=== PATIENT | female | born 1935 | race Caucasian/White ===

== ENCOUNTER 2016-11-15 14:11 | Inpatient (IN) | payer MEDICARE, OTHER ==
--- NOTE | 2016-11-15 14:41 | ER Document Report ---
ED Fall - General Stated Complaint: FALL/HIP PAIN Time Seen by Provider: 11/15/16 14:15 Mode of Arrival: Medic Information source: Patient, Emergency Med Personnel, [facility] Records Cannot obtain history due to: Dementia Notes: This 81-year-old female patient comes in complaining of left hip pain. She tripped over her dog on Wednesday 2 days ago, and injured her left hip. She has not been able to walk since then due to pain. There were no other injuries. TRAVEL OUTSIDE OF THE [place] IN LAST 30 DAYS: No - Related data Allergies/Adverse Reactions: erythromycin base [Erythromycin Base] Allergy (Severe, Verified 11/15/16 16:01) indomethacin [From Indocin] Allergy (Severe, Verified 11/15/16 16:01) indomethacin sodium [From Indocin] Allergy (Severe, Verified 11/15/16 16:01) Sulfa (Sulfonamide Antibiotics) Allergy (Verified 11/15/16 16:01) Hives Past Medical History - General Information source: Patient, Emergency Med Personnel, [facility] Records Cannot obtain history due to: Dementia - Social History Smoking Status: Unknown if Ever Smoked Cigarette use (# per day): No Chew tobacco use (# tins/day): No Smoking Education Provided: No Frequency of alcohol use: None Drug Abuse: None Occupation: retired Lives with: Spouse/Significant other Family History: None, Reviewed & Not Pertinent - Past Medical History Cardiac Medical History: Reports: Hx Hypercholesterolemia, Hx Hypertension Pulmonary Medical History: Reports: Hx Bronchitis EENT Medical History: Reports: None Neurological Medical History: Reports: None Endocrine Medical History: Reports: Hx Diabetes Mellitus Type 2, Hx Hypothyroidism Renal/ Medical History: Reports: None GI Medical History: Reports: None Musculoskeltal Medical History: Reports Hx Arthritis - spine and knees Psychiatric Medical History: Reports: Hx Dementia Traumatic Medical History: Reports: Hx Fractures - TAIL BONE Past Surgical History: Reports: Hx Appendectomy, Hx Orthopedic Surgery - R knee - Immunizations Hx Diphtheria, Pertussis, Tetanus Vaccination: Yes - 2006 Hx Pneumococcal Vaccination: 03/05/07 Review of Systems - Review of Systems -: Yes ROS unobtainable due to patient's medical condition - Dementia and hip pain Physical Exam - Vital signs Vitals: Temp Pulse BP Pulse Ox 98.7 F 97 130/66 H 95 11/15/16 14:20 11/15/16 14:20 11/15/16 14:20 11/15/16 14:20 Interpretation: Normal - General General appearance: Alert, Anxious In distress: Mild - HEENT Head: Normocephalic, Atraumatic Eyes: Normal Pupils: PERRL Neck: Normal - Respiratory Respiratory status: No respiratory distress Breath sounds: Normal - Cardiovascular Rhythm: Regular Heart sounds: Normal auscultation Murmur: No - Abdominal Inspection: Normal Bowel sounds: Normal Tenderness: Tender - Tenderness to palpate the left superior pubic region. - Back Back: Normal - Extremities General upper extremity: Normal inspection General lower extremity: Other - Left lateral hip is exquisitely tender to palpate. The leg does not appear externally rotated or shortened. - Neurological Neuro grossly intact: Yes - Psychological Associated symptoms: Anxious, Confused - Skin Skin Temperature: Warm Skin Moisture: Dry Skin Color: Normal Course - Vital Signs Vital signs: Temp Pulse Resp BP Pulse Ox 98.7 F 97 130/66 H 95 11/15/16 14:20 11/15/16 14:20 11/15/16 14:20 11/15/16 14:20 - Laboratory Result Diagrams: 11/15/16 15:32 11/15/16 15:32 Laboratory results interpreted by me: 11/15/16 11/15/16 15:32 15:32 WBC 17.6 H Hct 35.3 L Absolute Neutrophils 11.0 H Absolute Monocytes 1.8 H BUN 30 H Est GFR (Non-Af Amer) 53 L Glucose 212 H Direct Bilirubin 0.5 H Albumin 3.3 L - Diagnostic Test Radiology reviewed: Image reviewed, Reports reviewed - Displaced left superior and inferior pubic rami fractures - Consults Dr. Becker Time consulted: 17:00 Consulted provider: will come to ER Discharge - Discharge Clinical Impression: Systemic inflammatory response syndrome (SIRS) Fracture of pelvis Qualifiers: Encounter type: initial encounter Pelvic bone location: pubis Sublocation of pubis: superior rim Fracture type: closed Laterality: left Qualified Code(s): S32.512A - Fracture of superior rim of left pubis, initial encounter for closed fracture Leukocytosis Qualifiers: Leukocytosis type: unspecified Qualified Code(s): D72.829 - Elevated white blood cell count, unspecified Condition: Stable Disposition: ADMITTED INPATIENT Admitting Provider: Hospitalist Unit Admitted: Medical Floor
[2016-11-15 15:49] LABS: ABSOLUTE BASOPHILS # (AUTO) 0.1 10^3/uL (0.0-0.2); ABSOLUTE EOSINOPHILS # (AUTO) 0.2 10^3/uL (0.0-0.6); ABSOLUTE LYMPHOCYTES (AUTO) 4.6 10^3/uL (0.5-4.7); ABSOLUTE MONOCYTES (AUTO) 1.8 10^3/uL (0.1-1.4); BASOPHILS % (AUTO) 0.6 % (0-2); HEMATOCRIT 35.3 % (36.0-47.0); HEMOGLOBIN 12.4 g/dL (12.0-15.5); HGB HCT DIFFERENCE 1.9; LYMPHOCYTES % (AUTO) 25.9 % (13-45); MEAN CORPUSCULAR HEMOGLOBIN 31.9 pg (27.0-33.4); MEAN CORPUSCULAR HGB CONC 35.1 g/dL (32.0-36.0); MEAN CORPUSCULAR VOLUME 91 fl (80-97); MONOCYTES % (AUTO) 10.1 % (3-13); RED BLOOD COUNT 3.87 10^6/uL (3.72-5.28); RED CELL DISTRIBUTION WIDTH 13.3 % (11.5-14.0); SEGMENTED NEUTROPHILS % (AUTO) 62.4 % (42-78); WHITE BLOOD COUNT 17.6 10^3/uL (4.0-10.5)
[2016-11-15 16:02] LABS: ALANINE AMINOTRANSFERASE 25 U/L (9-52); ALBUMIN 3.3 g/dL (3.5-5.0); ALKALINE PHOSPHATASE 56 U/L (38-126); ANION GAP 11 (5-19); ASPARTATE AMINO TRANSFERASE 24 U/L (14-36); BILIRUBIN,DIRECT 0.5 mg/dL (0.0-0.4); BILIRUBIN,TOTAL 1.3 mg/dL (0.2-1.3); BLOOD UREA NITROGEN 30 mg/dL (7-20); CALCIUM 9.2 mg/dL (8.4-10.2); CARBON DIOXIDE 23 mmol/L (22-30); CHLORIDE 106 mmol/L (98-107); GLUCOSE 212 mg/dL (75-110); POTASSIUM 4.5 mmol/L (3.6-5.0); SODIUM 140.1 mmol/L (137-145); TOTAL PROTEIN 6.7 g/dL (6.3-8.2)
[2016-11-15] MEDS ORDERED: HYDROMORPHONE HCL INJ/PF 2 MG/ML AMPULE IV ONE (16:17)
[2016-11-15] MEDS ORDERED: DEXTROSE 50%-WATER 25 GM/50 ML DISP.SYRIN IV PRN ×2 (17:18)
[2016-11-15] MEDS ORDERED: GLUCAGON,HUMAN RECOMB 1 MG INJ IM PRN (17:18)
[2016-11-15] MEDS ORDERED: DEXTROSE 40% GEL 15 GM TUBE PO PRN ×2 (17:18)
[2016-11-15] MEDS ORDERED: HYDROMORPHONE HCL INJ/PF 2 MG/ML AMPULE IV PRN (17:22)
[2016-11-15] MEDS ORDERED: CEFTRIAXONE 1 GM/D5W RTU 1 GM/50 ML RTUPB IV ONE (18:00)
--- NOTE | 2016-11-15 18:10 | PDOC H&P ---
History of Present Illness Admission Date/PCP: 11/15/16 17:44 Dr. Tyler Patient complains of: Pelvic pain History of Present Illness: LIZ GONZALEZ is a 81 year old female several days status post with pelvic pain. Patient found to have pelvic fracture in emergency department. She normally resides with her elderly . He did not want to take patient to the hospital because he was hoping nothing was wrong with her. Eventually her daughters insisted that she be brought emergency department for evaluation. In the emergency department she was also noted to have elevated white blood count. She apparently has been having some urologic issues that have been followed by Dr. Alexis of urology. From family description it sounds like she had some type of ureteral mass and is scheduled to have cystoscopy on 2016. She is supposed to have preoperative evaluation this . Past Medical History Cardiac Medical History: Reports: Hyperlipidema, Hypertension Denies: Atrial Fibrillation, Congestive Heart Failure, Coronary Artery Disease, Myocardial Infarction, Peripheral Vascular Disease, Pulmonary Embolism , Heart Murmur Pulmonary Medical History: Reports: Bronchitis Denies: Asthma, Chronic Obstructive Pulmonary Disease (COPD), Pneumonia, Respiratory Failure, Sleep Apnea, Tuberculosis EENT Medical History: Reports: None Neurological Medical History: Reports: None Denies: Seizures Endocrine Medical History: Reports: Diabetes Mellitus Type 2, Hypothyroidism Denies: Hyperthyroidism Renal/ Medical History: Reports: Other - Ureteral mass, hematuria Denies: End Stage Renal Disease Malignancy Medical History: Denies: Breast Cancer, Cervical Cancer, Leukemia, Lung Cancer, Ovarian Cancer GI Medical History: Reports: None Denies: Crohn's Disease, Gastroesophageal Reflux Disease, Hiatal Hernia Musculoskeltal Medical History: Reports: Arthritis - spine and knees Denies: Fibromyalgia Psychiatric Medical History: Reports: Dementia Denies: Bipolar Disorder, Depression, Post Traumatic Stress Disorder Hematology: Denies: Anemia, Hemophilia, Sickle Cell Disease Infectious Medical History: Denies: HIV Past Surgical History Past Surgical History: Reports: Appendectomy, Orthopedic Surgery - R knee Denies: Amputation, Section, Cholecystectomy, Colostomy, Coronary Artery Bypass Graft, Gastric Bypass Surgery, Herniorrhaphy, Hysterectomy, Mastectomy, Pacemaker, Tonsillectomy, Tubal Ligation Social History Information Source: Patient, Relative Lives with: Spouse/Significant other Smoking Status: Unknown if Ever Smoked Frequency of Alcohol Use: None Hx Recreational Drug Use: No Hx Prescription Drug Abuse: No - Advance Directive Resuscitation Status: Full Code Family History Family History: Reviewed & Not Pertinent Parental Family History Reviewed: Yes Children Family History Reviewed: Yes Sibling(s) Family History Reviewed.: Yes Medication/Allergy Home Medications: Acetaminophen [Tylenol Extra Strength 500 mg Tablet] 1 - 2 tab PO Q4 11/29/12 Fexofenadine HCl [Rox Allergy] 180 mg PO QHS 11/29/12 Insulin Aspart [Novolog Flexpen] 6 unit SUBCUT 11/29/12 Insulin Glargine,Hum.rec.anlog [Lantus Insulin 100 Unit/mL] 50 unit SUBCUT QAM 11/29/12 Insulin Glargine,Hum.rec.anlog [Lantus Insulin 100 Unit/mL] 50 unit SUBCUT QHS 11/29/12 Latanoprost [Xalatan 0.005% Oph Soln 2.5 Ml Bottle] 1 drop QHS 11/29/12 Lorazepam 0.5 mg PO TID PRN 11/29/12 Zolpidem Tartrate 5 mg PO QHS 11/29/12 Atenolol [Tenormin 25 mg Tablet] 12.5 mg PO DAILY 01/26/14 Ergocalciferol (Vitamin D2) [Vitamin D] 400 unit PO DAILY 01/26/14 Folic Acid/Multivit-Min/Lutein [Centrum Silver Chewable Tablet] 1 each PO DAILY 01/26/14 Sertraline HCl [Zoloft] 25 mg PO DAILY 01/26/14 Simvastatin 20 mg PO DAILY 01/26/14 Hydrocodone Bit/Acetaminophen [Hydrocodon-Acetaminophen 5-325] 1 each PO Q6 #30 tablet 11/13/15 Ondansetron [Zofran Odt 4 mg Tablet] 4 mg PO Q4HP PRN #30 tab.rapdis 11/13/15 Tamsulosin HCl [Flomax 0.4 mg Cap.sr] 0.4 mg PO DAILY #7 cap.sr.24h 11/13/15 Lidocaine [Lidoderm 5% (700 mg) Transdermal Patch] 1 patch TP DAILY #30 adh..patch 12/04/15 Tramadol HCl [Ultram 50 mg Tablet] 50 mg PO ASDIR PRN #30 tablet 12/04/15 Allergies/Adverse Reactions: erythromycin base [Erythromycin Base] Allergy (Severe, Verified 11/15/16 16:01) indomethacin [From Indocin] Allergy (Severe, Verified 11/15/16 16:01) indomethacin sodium [From Indocin] Allergy (Severe, Verified 11/15/16 16:01) Sulfa (Sulfonamide Antibiotics) Allergy (Verified 11/15/16 16:01) Hives Review of Systems Constitutional: ABSENT: chills, fever(s), headache(s), weight gain, weight loss Eyes: ABSENT: visual disturbances Ears: PRESENT: hearing changes - Deafness Cardiovascular: ABSENT: chest pain, dyspnea on exertion, edema, orthropnea, palpitations Respiratory: ABSENT: cough, hemoptysis Gastrointestinal: ABSENT: abdominal pain, constipation, diarrhea, hematemesis, hematochezia, nausea, vomiting Genitourinary: ABSENT: dysuria, hematuria Musculoskeletal: PRESENT: other - Pelvic pain. ABSENT: joint swelling Integumentary: ABSENT: rash, wounds Neurological: ABSENT: abnormal gait, abnormal speech, confusion, dizziness, focal weakness, syncope Psychiatric: ABSENT: anxiety, depression, homidical ideation, suicidal ideation Endocrine: ABSENT: cold intolerance, heat intolerance, polydipsia, polyuria Hematologic/Lymphatic: ABSENT: easy bleeding, easy bruising Physical Exam Vital Signs: Temp Pulse Resp BP Pulse Ox 98.7 F 97 130/66 H 95 11/15/16 14:20 11/15/16 14:20 11/15/16 14:20 11/15/16 14:20 PHYSICAL EXAM: GENERAL: Appears well, no acute distress, extremely hard of hearing HEENT: Normocephalic, no scleral icterus, conjunctiva clear, EOEM intact, PERRLA , moist mucous membranes NECK: trachea midline, no thyromegally RESPIRATORY: Clear to auscultation, no wheezes/rhonchi CARDIAC: Regular rate and rhythm, no murmur/[place]/rub ABDOMEN: Soft, no distension, no tenderness, no guarding, normal bowel sounds, negative Corcoran sign RECTAL: deferred : deferred EXTREMITIES: No edema, cyanosis, clubbing MUSCULOSKELETAL: Pain with any range of motion of the lower extremities VASCULAR: normal peripheral pulses NEUROLOGIC: Alert, oriented to person/place/time, normal speech, cranial nerves grossly intact, 5/5 strength in all extremities, tactile sensation intact in all extremities SKIN: No rash, no wounds, no worrisome skin lesions PSYCHIATRIC: Normal mood, normal affect Results Laboratory Results: Labs- All tests 24 hr 11/15/16 11/15/16 15:32 15:32 WBC 17.6 H RBC 3.87 Hgb 12.4 Hct 35.3 L MCV 91 MCH 31.9 MCHC 35.1 RDW 13.3 Plt Count 251 Seg Neutrophils % 62.4 Lymphocytes % 25.9 Monocytes % 10.1 Eosinophils % 1.0 Basophils % 0.6 Absolute Neutrophils 11.0 H Absolute Lymphocytes 4.6 Absolute Monocytes 1.8 H Absolute Eosinophils 0.2 Absolute Basophils 0.1 Sodium 140.1 Potassium 4.5 Chloride 106 Carbon Dioxide 23 Anion Gap 11 BUN 30 H Creatinine 1.00 Est GFR ( Amer) > 60 Est GFR (Non-Af Amer) 53 L Glucose 212 H Calcium 9.2 Total Bilirubin 1.3 Direct Bilirubin 0.5 H Indirect Bilirubin Not Reportable Neonat Total Bilirubin Not Reportable AST 24 ALT 25 Alkaline Phosphatase 56 Total Protein 6.7 Albumin 3.3 L Impressions: Hip X-Ray 11/15/16 14:22 IMPRESSION: FRACTURES OF THE LEFT SUPERIOR AND INFERIOR PUBIC RAMI. NO DEFINITE ACUTE TRAUMATIC FINDINGS IN THE LEFT HIP ITSELF. Chest X-Ray 11/15/16 17:16 IMPRESSION: MILD CARDIOMEGALY. MILD CHRONIC INTERSTITIAL CHANGES. NO ACUTE RADIOGRAPHIC FINDING IN THE CHEST. Assessment & Plan - Diagnosis (1) Pelvic fracture Qualifiers: Encounter type: initial encounter Pelvic bone location: pubis Sublocation of pubis: superior rim Fracture type: closed Laterality: left Qualified Code(s): S32.512A - Fracture of superior rim of left pubis, initial encounter for closed fracture Is this a current diagnosis for this admission?: YesPlan: This is going to pose a significant mobility issue. Physical therapy to evaluate. water reuse program manager to evaluate. Family has not happy about the possibility of inpatient rehabilitation as they have had a bad experience with their father. Oxycodone for pain. (2) SIRS (systemic inflammatory response syndrome) Is this a current diagnosis for this admission?: YesPlan: Patient has significant leukocytosis. Chest x-ray is negative. Check urinalysis. Check blood culture. Start IV Rocephin for now. (3) Ureteral mass Is this a current diagnosis for this admission?: YesPlan: Obtain records from Dr. Alexis of urology. Patient was scheduled to have preoperative evaluation this and cystoscopy on 12/03/[address] Alexis. (4) Diabetes Is this a current diagnosis for this admission?: YesPlan: Sliding scale insulin for now. Verify home medications. (5) Deafness Is this a current diagnosis for this admission?: Yes - Time Time Spent: Greater than 70 Minutes - Inpatient Certification Based on my medical assessment, after consideration of the patient's comorbidities, presenting symptoms, or acuity I expect that the services needed warrant INPATIENT care.: Yes I certify that my determination is in accordance with my understanding of Medicare's requirements for reasonable and necessary INPATIENT services [42 CFR 412.3e].: Yes Medical Necessity: Need for Pain Control, Need for IV Antibiotics
[2016-11-15 19:51] LABS: ADD ON TESTING BLD IN LAB ACKNOWLEDGE
[2016-11-15 20:09] LABS: APPEARANCE,URINE SLIGHTLY-CLOUDY; BILIRUBIN,URINE NEGATIVE (NEGATIVE); GLUCOSE, URINE >=500 mg/dL (NEGATIVE); KETONES,URINE NEGATIVE (NEGATIVE); LEUKOCYTE ESTERASE,URINE NEGATIVE (NEGATIVE); NITRITE,URINE NEGATIVE (NEGATIVE); PROTEIN,URINE 30 mg/dL (NEGATIVE); URINE SPECIFIC GRAVITY 1.038; UROBILINOGEN,URINE NEGATIVE mg/dL (<2.0)
[2016-11-15 20:18] LABS: CREATINE KINASE 137 U/L (30-135)
[2016-11-15 20:31] LABS: CREATINE KINASE MB 0.49 ng/mL (<4.55)
[2016-11-15 20:32] LABS: TROPONIN I < 0.012 ng/mL
[2016-11-15] MEDS: ACETAMINOPHEN 325 MG TABLET PO PRN (22:22)
[2016-11-15] MEDS: INSULIN LISPRO 100 UNIT/ML 3 ML VIAL SUBCUT PRN (22:57)
[2016-11-16 05:17] LABS: ABSOLUTE BASOPHILS # (AUTO) 0.1 10^3/uL (0.0-0.2); ABSOLUTE EOSINOPHILS # (AUTO) 0.7 10^3/uL (0.0-0.6); ABSOLUTE LYMPHOCYTES (AUTO) 6.2 10^3/uL (0.5-4.7); ABSOLUTE MONOCYTES (AUTO) 1.7 10^3/uL (0.1-1.4); ABSOLUTE NEUT (AUTO) 7.6 10^3/uL (1.7-8.2); BASOPHILS % (AUTO) 0.9 % (0-2); EOSINOPHILS % (AUTO) 4.4 % (0-6); HEMOGLOBIN 12.1 g/dL (12.0-15.5); HGB HCT DIFFERENCE 2.3; LYMPHOCYTES % (AUTO) 38.1 % (13-45); MEAN CORPUSCULAR HEMOGLOBIN 32.6 pg (27.0-33.4); MEAN CORPUSCULAR HGB CONC 35.7 g/dL (32.0-36.0); MEAN CORPUSCULAR VOLUME 91 fl (80-97); MONOCYTES % (AUTO) 10.3 % (3-13); RED BLOOD COUNT 3.73 10^6/uL (3.72-5.28); RED CELL DISTRIBUTION WIDTH 13.5 % (11.5-14.0); SEGMENTED NEUTROPHILS % (AUTO) 46.3 % (42-78); WHITE BLOOD COUNT 16.3 10^3/uL (4.0-10.5)
[2016-11-16 05:45] LABS: ANION GAP 9 (5-19); BLOOD UREA NITROGEN 35 mg/dL (7-20); CALCIUM 9.3 mg/dL (8.4-10.2); CARBON DIOXIDE 22 mmol/L (22-30); CHLORIDE 109 mmol/L (98-107); CREATININE RESULT 1.05 mg/dL (0.52-1.25); GLUCOSE 178 mg/dL (75-110); POTASSIUM 4.2 mmol/L (3.6-5.0); SODIUM 140.1 mmol/L (137-145)
[2016-11-16] MEDS: ENOXAPARIN SODIUM INJ 40 MG/0.4 ML DISP.SYRIN SUBCUT SCH (09:59)
[2016-11-16] MEDS: CEFTRIAXONE 1 GM/D5W RTU 50 ML IV SCH (10:13)
[2016-11-16] MEDS: OXYCODONE HCL IR 5 MG TABLET PO PRN (10:24)
[2016-11-16] MEDS: HYDROMORPHONE HCL INJ/PF 2 MG/ML AMPULE IV PRN ×2 (11:29→18:51)
[2016-11-16] MEDS: INSULIN LISPRO 100 UNIT/ML 3 ML VIAL SUBCUT PRN ×2 (11:44→22:39)
--- NOTE | 2016-11-16 12:23 | Physician Advisory Note ---
Physician Advisor ProgressNote .: [place] [facility], I have reviewed the medical record for this patient. Physician Advisor Statement: Nice documentation of fx details. Possible documentation opportunities if attending agrees: 1. "SIRS, present on admission, due to " [?bacterial infxn of unclear etiology? acute fx? both?] 2. "suspected bacterial infection of unclear etiology" ['til have a definite dx, still need to give dx reason for the IV abx] 3. ? "fx is suspected pathologic due to underlying osteoporosis"? As always, if concerned about any unstable VS or abnormal labs, please comment on them - what bad things they might indicate, why they concern you - & note what doing about them. Please also document each day the potential clinical problems you are concerned could occur if pt not kept in hospital for tx at this time. (These points are hardy - if present in each note, attending's status decision should be sufficiently supported.) Discussion: 81yo female w/ chronic co-morbidities including HTN, HLD, DM-2, hypothyroidism, bronchitis, dementia, OA of spine & knees, fx tailbone, Rt knee surgery, urethral mass scheduled for outpt cystoscopy 12/03, deafness, ambulatory dysfunction, unsteady at baseline w/use of walker per PT report. - presented 5 PM to ED w/continued Lt hip pain since a trip & fall a couple days before. (+) HR 97, RR15, BP 130/66. WBC 17.6, Hgb 12.4, BUN 30, Cr 1.0, glc 212, U/A w/ 30 pro & 500+ glc, xray = displaced Lt sup & inf pubic rami fx.s. ED gave Dilaudid 0.5mg x 2, ashley catheter. Attending ordered U/A, BC, ur cx, f/u labs through 11/18, IV Rocephin, daily wts , PT eval, oxycodone for pain. TTP Lt sup pubic region, exquisitely TTP Lt lat hip. (+) "pain w/any ROM of LEs". As of 11/16, attending has ordered prn IV Dilaudid for pain, continued Rocephin. PT eval 11/16 notes mobility 80-99% impaired w/goal being 1-19% impaired. Further details of eval currently pending. Status: Pt w/pelvic fx, unable to be helped by surgery. Unable to ambulate or bear weight. High risk for further falls w/fx.s if not kept w/ongoing PT & close monitoring. Became tachycardic again to 94 at 21:10 last pm, still 87 @00:31, with BP ranging 109/72 - 150/66. Still w/significant leukocytosis this AM, expecting & tx'ing for underlying bacterial infxn of unknown etiology, w/u in progress. Still w/significant pain, unable to be managed adequately w/po meds at present. VS not stable. Attending clearly expecting pt to need ongoing hospital care & monitoring for at least 2 MNs. Tx & monitoring in inpatient hospital setting medically reasonable & necessary to protect pt's health, safety, & medical condition. Appropriate for Inpt status. Thanks for your help with documentation accuracy/specificity improvement! Nimisha Oates MD [facility] Physician Advisor, Fellow of Hospital Medicine
--- NOTE | 2016-11-16 14:17 | PDOC PROGRESS REPORT ---
Subjective Progress Note for:: 11/16/16 Subjective:: Patient continues to have pelvic pain. Patient denies fever, chills, headache, new focal weakness, chest pain, shortness of breath, abdominal pain, nausea, vomiting, diarrhea, constipation. Physical Exam Vital Signs: Temp Pulse Resp BP Pulse Ox 98.5 F 87 18 150/66 H 93 11/16/16 00:31 11/16/16 00:31 11/16/16 00:31 11/16/16 00:31 11/16/16 00:31 Intake & Output 11/15/16 11/16/16 11/17/16 06:59 06:59 06:59 Intake Total 0 Output Total 420 Balance -420 Weight 72.2 kg GENERAL: No acute distress, hard of hearing HEENT: Conjunctiva clear, nonicteric, moist mucous membranes, no JVD, midline trachea RESPIRATORY: Clear to auscultation bilaterally, no wheezes, no rhonchi CARDIAC: Regular rate and rhythm, no murmurs/gallops/rubs ABDOMEN: Soft, nondistended, nontender, positive bowel sounds, no rebound, no guarding EXTREMETIES: No edema, cyanosis, clubbing NEUROLOGIC: Alert, oriented to person/place/time, CN's grossly intact, no focal deficits SKIN: No rash, wounds PSYCH: Normal mood, normal affect Results Laboratory Results: 11/16/16 04:31 11/16/16 04:31 11/15/16 11/16/16 11/16/16 19:25 04:31 04:31 WBC 16.3 H RBC 3.73 Hgb 12.1 Hct 34.0 L MCV 91 MCH 32.6 MCHC 35.7 RDW 13.5 Plt Count 240 Seg Neutrophils % 46.3 Lymphocytes % 38.1 Monocytes % 10.3 Eosinophils % 4.4 Basophils % 0.9 Absolute Neutrophils 7.6 Absolute Lymphocytes 6.2 H Absolute Monocytes 1.7 H Absolute Eosinophils 0.7 H Absolute Basophils 0.1 Sodium 140.1 Potassium 4.2 Chloride 109 H Carbon Dioxide 22 Anion Gap 9 BUN 35 H Creatinine 1.05 Est GFR ( Amer) > 60 Est GFR (Non-Af Amer) 50 L Glucose 178 H Calcium 9.3 Magnesium 2.0 Urine Color YELLOW Urine Appearance SLIGHTLY-CLOUDY Urine pH 5.0 Ur Specific Branch 1.038 Urine Protein 30 H Urine Glucose (UA) >=500 H Urine Ketones NEGATIVE Urine Blood NEGATIVE Urine Nitrite NEGATIVE Ur Leukocyte Esterase NEGATIVE Urine WBC (Auto) 8 Urine RBC (Auto) 10 Impressions: Hip X-Ray 11/15/16 14:22 IMPRESSION: FRACTURES OF THE LEFT SUPERIOR AND INFERIOR PUBIC RAMI. NO DEFINITE ACUTE TRAUMATIC FINDINGS IN THE LEFT HIP ITSELF. Chest X-Ray 11/15/16 17:16 IMPRESSION: MILD CARDIOMEGALY. MILD CHRONIC INTERSTITIAL CHANGES. NO ACUTE RADIOGRAPHIC FINDING IN THE CHEST. Assessment & Plan - Diagnosis (1) Pelvic fracture Qualifiers: Encounter type: initial encounter Pelvic bone location: pubis Sublocation of pubis: superior rim Fracture type: closed Laterality: left Qualified Code(s): S32.512A - Fracture of superior rim of left pubis, initial encounter for closed fracture Is this a current diagnosis for this admission?: YesPlan: This is going to pose a significant mobility issue. Physical therapy as tolerated. assistant facility manager to evaluate. Family has not happy about the possibility of inpatient rehabilitation as they have had a bad experience with their father. Oxycodone for pain. (2) SIRS (systemic inflammatory response syndrome) Is this a current diagnosis for this admission?: YesPlan: Patient has significant leukocytosis. Chest x-ray is negative. Urinalysis unremarkable. Blood cultures pending. Continue IV Rocephin for now. (3) Ureteral mass Is this a current diagnosis for this admission?: YesPlan: Case discussed with Dr. Chi of urology who is web application tester for Dr. Alexis. He states the patient can be rescheduled for preoperative evaluation when she is discharged from the hospital. He states that she can still have cystoscopy on 12/03/2016 as plan if she can be transported to procedure. (4) Diabetes Is this a current diagnosis for this admission?: Yes (5) Deafness Is this a current diagnosis for this admission?: Yes - Time Time Spent with patient: 25-34 minutes
[2016-11-16] MEDS: ONDANSETRON HCL INJ/PF 4 MG/2 ML SDV IV PRN (16:46)
[2016-11-17] MEDS: OXYCODONE HCL IR 5 MG TABLET PO PRN ×3 (05:33→17:10)
[2016-11-17 05:40] LABS: ABSOLUTE BASOPHILS # (AUTO) 0.2 10^3/uL (0.0-0.2); ABSOLUTE EOSINOPHILS # (AUTO) 0.6 10^3/uL (0.0-0.6); ABSOLUTE LYMPHOCYTES (AUTO) 4.7 10^3/uL (0.5-4.7); ABSOLUTE MONOCYTES (AUTO) 1.7 10^3/uL (0.1-1.4); ABSOLUTE NEUT (AUTO) 7.6 10^3/uL (1.7-8.2); BASOPHILS % (AUTO) 1.2 % (0-2); EOSINOPHILS % (AUTO) 4.2 % (0-6); HEMATOCRIT 34.4 % (36.0-47.0); HEMOGLOBIN 12.3 g/dL (12.0-15.5); HGB HCT DIFFERENCE 2.5; LYMPHOCYTES % (AUTO) 31.6 % (13-45); MEAN CORPUSCULAR HEMOGLOBIN 32.3 pg (27.0-33.4); MEAN CORPUSCULAR HGB CONC 35.7 g/dL (32.0-36.0); MEAN CORPUSCULAR VOLUME 91 fl (80-97); MONOCYTES % (AUTO) 11.5 % (3-13); RED BLOOD COUNT 3.79 10^6/uL (3.72-5.28); RED CELL DISTRIBUTION WIDTH 13.4 % (11.5-14.0); SEGMENTED NEUTROPHILS % (AUTO) 51.5 % (42-78); WHITE BLOOD COUNT 14.7 10^3/uL (4.0-10.5)
[2016-11-17 05:59] LABS: ANION GAP 12 (5-19); BLOOD UREA NITROGEN 40 mg/dL (7-20); CARBON DIOXIDE 22 mmol/L (22-30); CHLORIDE 104 mmol/L (98-107); CREATININE RESULT 1.11 mg/dL (0.52-1.25); GLUCOSE 276 mg/dL (75-110); POTASSIUM 4.6 mmol/L (3.6-5.0); SODIUM 137.8 mmol/L (137-145)
[2016-11-17] MEDS: INSULIN LISPRO 100 UNIT/ML 3 ML VIAL SUBCUT PRN ×3 (08:39→17:12)
[2016-11-17] MEDS: CEFTRIAXONE 1 GM/D5W RTU 50 ML IV SCH (10:33)
[2016-11-17] MEDS: ACETAMINOPHEN 325 MG TABLET PO PRN (10:34)
[2016-11-17] MEDS ORDERED: (PENDING PHARMACY ID) (Atenolol [Tenormin] 12.5 MG) PO PRN (10:38)
[2016-11-17] MEDS ORDERED: INSULIN GLARGINE,HUM.REC.ANLOG 1,000 UNIT/10 ML UNIT SUBCUT SCH (10:45)
[2016-11-17] MEDS: LORATADINE 10 MG TABLET PO SCH (11:19)
[2016-11-17] MEDS: SERTRALINE HCL 50 MG TABLET PO SCH (11:20)
--- NOTE | 2016-11-17 13:24 | PDOC PROGRESS REPORT ---
Subjective Progress Note for:: 11/17/16 Subjective:: Patient states her pelvic pain is controlled. She was able to get up and do a couple sidesteps at the bedside with physical therapy today. Patient denies fever, chills, headache, new focal weakness, chest pain, shortness of breath, abdominal pain, nausea, vomiting, diarrhea, constipation. Physical Exam Vital Signs: Temp Pulse Resp BP Pulse Ox 97.7 F 93 17 123/63 91 L 11/17/16 11:00 11/17/16 11:00 11/17/16 11:00 11/17/16 11:00 11/17/16 11:00 Intake & Output 11/16/16 11/17/16 11/18/16 06:59 06:59 06:59 Intake Total 0 480 Output Total 420 350 Balance -420 130 Weight 72.2 kg 72 kg GENERAL: No acute distress, hard of hearing HEENT: Conjunctiva clear, nonicteric, moist mucous membranes, no JVD, midline trachea RESPIRATORY: Clear to auscultation bilaterally, no wheezes, no rhonchi CARDIAC: Regular rate and rhythm, no murmurs/gallops/rubs ABDOMEN: Soft, nondistended, nontender, positive bowel sounds, no rebound, no guarding EXTREMETIES: No edema, cyanosis, clubbing NEUROLOGIC: Alert, oriented to person/place/time, CN's grossly intact, no focal deficits SKIN: No rash, wounds PSYCH: Normal mood, normal affect Results Laboratory Results: 11/17/16 05:31 11/17/16 05:31 11/17/16 11/17/16 05:31 05:31 WBC 14.7 H RBC 3.79 Hgb 12.3 Hct 34.4 L MCV 91 MCH 32.3 MCHC 35.7 RDW 13.4 Plt Count 279 Seg Neutrophils % 51.5 Lymphocytes % 31.6 Monocytes % 11.5 Eosinophils % 4.2 Basophils % 1.2 Absolute Neutrophils 7.6 Absolute Lymphocytes 4.7 Absolute Monocytes 1.7 H Absolute Eosinophils 0.6 Absolute Basophils 0.2 Sodium 137.8 Potassium 4.6 Chloride 104 Carbon Dioxide 22 Anion Gap 12 BUN 40 H Creatinine 1.11 Est GFR ( Amer) 57 L Est GFR (Non-Af Amer) 47 L Glucose 276 H Calcium 9.0 11/15/16 19:25 Catheterized Urine Urine Culture - Final NO GROWTH 2 DAYS Impressions: Hip X-Ray 11/15/16 14:22 IMPRESSION: FRACTURES OF THE LEFT SUPERIOR AND INFERIOR PUBIC RAMI. NO DEFINITE ACUTE TRAUMATIC FINDINGS IN THE LEFT HIP ITSELF. Chest X-Ray 11/15/16 17:16 IMPRESSION: MILD CARDIOMEGALY. MILD CHRONIC INTERSTITIAL CHANGES. NO ACUTE RADIOGRAPHIC FINDING IN THE CHEST. Assessment & Plan - Diagnosis (1) Pelvic fracture Qualifiers: Encounter type: initial encounter Pelvic bone location: pubis Sublocation of pubis: superior rim Fracture type: closed Laterality: left Qualified Code(s): S32.512A - Fracture of superior rim of left pubis, initial encounter for closed fracture Is this a current diagnosis for this admission?: YesPlan: This is going to pose a significant mobility issue. Physical therapy as tolerated. manager council to evaluate. Family has not happy about the possibility of inpatient rehabilitation as they have had a bad experience with their father. Oxycodone for pain. (2) SIRS (systemic inflammatory response syndrome) Is this a current diagnosis for this admission?: YesPlan: Patient has significant leukocytosis. Chest x-ray is negative. Urinalysis unremarkable. Blood cultures no growth 24 hours. Continue IV Rocephin for now. (3) Ureteral mass Is this a current diagnosis for this admission?: YesPlan: Case discussed with Dr. Chi of urology who is ultrasonic solderer for Dr. Alexis. He states the patient can be rescheduled for preoperative evaluation when she is discharged from the hospital. He states that she can still have cystoscopy on 12/03/2016 as plan if she can be transported to procedure. (4) Diabetes Is this a current diagnosis for this admission?: YesPlan: Sliding scale insulin for now. Resume Lantus 15 units subcutaneous twice daily (patient normally takes 32 units twice daily). (5) Deafness Is this a current diagnosis for this admission?: Yes - Time Time Spent with patient: 25-34 minutes
[2016-11-17] MEDS ORDERED: MAGNESIUM HYDROXIDE SUSP 30 ML UDCUP PO ONE (14:45)
[2016-11-17] MEDS: DOCUSATE SODIUM 100 MG CAPSULE PO SCH (17:10)
[2016-11-17] MEDS: HYDROMORPHONE HCL INJ/PF 2 MG/ML AMPULE IV PRN (20:34)
[2016-11-17] MEDS: INSULIN GLARGINE,HUM.REC.ANLOG 300 UNIT/3 ML INSULN.PEN SUBCUT SCH (21:50)
[2016-11-17] MEDS: LATANOPROST 0.005% OPH SOLN 2.5 ML OU SCH (21:51)
[2016-11-17] MEDS: SIMVASTATIN 40 MG TABLET PO SCH (21:51)
[2016-11-18] MEDS: ENOXAPARIN SODIUM INJ 40 MG/0.4 ML DISP.SYRIN SUBCUT SCH (08:00)
[2016-11-18] MEDS: CEFTRIAXONE 1 GM/D5W RTU 50 ML IV SCH (10:00)
[2016-11-18] MEDS: MULTIVITAMIN TABLET PO SCH (10:00)
[2016-11-18] MEDS: INSULIN GLARGINE,HUM.REC.ANLOG 300 UNIT/3 ML INSULN.PEN SUBCUT SCH (10:00)
[2016-11-18] MEDS ORDERED: [UNRECOGNIZED DRUG - REMARK] PO SCH (10:00)
[2016-11-18] MEDS: DOCUSATE SODIUM 100 MG CAPSULE PO SCH ×2 (10:00→18:00)
[2016-11-18] MEDS: LORATADINE 10 MG TABLET PO SCH (12:00)
[2016-11-18] MEDS: SERTRALINE HCL 50 MG TABLET PO SCH (12:00)
--- NOTE | 2016-11-18 16:42 | PROGRESS NOTE E ---
Progress Note NAME: LIZ GONZALEZ : 1935 AGE: 81Y DATE: 11/18/2016 ROOM: 431 TIME SPENT MANAGING PATIENT: Twenty-five minutes. SUBJECTIVE: Patient continues to have pain and this was to the point that she is not participating with physical therapy. I have learned today that her was also in the emergency department overnight secondary to multiple acute and chronic vertebral compression fractures. He also apparently has respiratory distress and has been admitted to the hospital and placed on noninvasive ventilation for now. Patient normally resides with her and daughter. OBJECTIVE: VITAL SIGNS: Temperature 98.1, blood pressure 133/52, pulse 88, respirations 18. O2 saturation is 95% on 1 L nasal cannula. GENERAL: Somewhat depressed appearing in no acute distress. HEENT: Sclerae nonicteric. Oropharynx shows moist mucous membranes. NECK: Has no JVD. RESPIRATORY: Clear to auscultation. CARDIAC: Regular rate and rhythm. ABDOMEN: Soft, nontender, nondistended. Positive bowel sounds. EXTREMITIES: Have no edema, cyanosis, clubbing. LABORATORIES: White blood count 16.1. Hemoglobin 12.1. Hematocrit 281. Chemistry panel is reviewed. Aside from a glucose at 258, it is otherwise stable. ASSESSMENT AND PLAN: 1. SYSTEMIC INFLAMMATORY RESPONSE SYNDROME. Discontinue IV Rocephin, as culture workup has been negative. Start doxycycline to complete another 7 days of empiric therapy. 2. PELVIC FRACTURE. Continue physical therapy as tolerated. Increase oxycodone to 10 mg as needed for better pain control. If patient is not able to return home in the next couple of days, we may have to consider referral to rehab facility. Although the family has been very opposed to this, her social situation is worsening given the fact that her has now been hospitalized for respiratory failure and vertebral compression fractures. 3. DIABETES. THE PATIENT IS HYPERGLYCEMIC, so we will increase her Lantus to 20 units twice daily. Continue sliding scale insulin. 4. DEAFNESS. DICTATING PHYSICIAN: MELONIE LIAO M.D. [id number] PHY#: [id number] ID: [id number] JOB#: [id number] ACCT: [id number] cc: >
[2016-11-18] MEDS ORDERED: INSULIN GLARGINE,HUM.REC.ANLOG 300 UNIT/3 ML INSULN.PEN SUBCUT SCH (22:00)
[2016-11-18] MEDS: SIMVASTATIN 40 MG TABLET PO SCH (22:57)
[2016-11-18] MEDS: LATANOPROST 0.005% OPH SOLN 2.5 ML OU SCH (22:58)
[2016-11-19] MEDS: ONDANSETRON HCL INJ/PF 4 MG/2 ML SDV IV PRN (01:40)
[2016-11-19] MEDS: OXYCODONE HCL IR 5 MG TABLET PO PRN ×2 (05:54→11:34)
[2016-11-19 07:59] LABS: ABSOLUTE BASOPHILS # (AUTO) 0.1 10^3/uL (0.0-0.2); ABSOLUTE EOSINOPHILS # (AUTO) 0.9 10^3/uL (0.0-0.6); ABSOLUTE LYMPHOCYTES (AUTO) 5.3 10^3/uL (0.5-4.7); ABSOLUTE MONOCYTES (AUTO) 2.2 10^3/uL (0.1-1.4); ABSOLUTE NEUT (AUTO) 7.7 10^3/uL (1.7-8.2); BASOPHILS % (AUTO) 0.8 % (0-2); EOSINOPHILS % (AUTO) 5.4 % (0-6); HEMATOCRIT 34.3 % (36.0-47.0); HEMOGLOBIN 12.1 g/dL (12.0-15.5); LYMPHOCYTES % (AUTO) 32.6 % (13-45); MEAN CORPUSCULAR HEMOGLOBIN 32.2 pg (27.0-33.4); MEAN CORPUSCULAR HGB CONC 35.3 g/dL (32.0-36.0); MEAN CORPUSCULAR VOLUME 91 fl (80-97); MONOCYTES % (AUTO) 13.4 % (3-13); RED BLOOD COUNT 3.76 10^6/uL (3.72-5.28); RED CELL DISTRIBUTION WIDTH 13.2 % (11.5-14.0); SEGMENTED NEUTROPHILS % (AUTO) 47.8 % (42-78); WHITE BLOOD COUNT 16.1 10^3/uL (4.0-10.5)
[2016-11-19] MEDS: ENOXAPARIN SODIUM INJ 40 MG/0.4 ML DISP.SYRIN SUBCUT SCH (08:36)
[2016-11-19] MEDS: DOCUSATE SODIUM 100 MG CAPSULE PO SCH ×2 (09:44→17:11)
[2016-11-19] MEDS: MULTIVITAMIN TABLET PO SCH (09:44)
[2016-11-19] MEDS: ASCORBIC ACID 500 MG TABLET PO SCH (09:44)
[2016-11-19] MEDS: DOXYCYCLINE HYCLATE 100 MG TABLET PO SCH ×2 (09:44→22:29)
[2016-11-19] MEDS: INSULIN GLARGINE,HUM.REC.ANLOG 300 UNIT/3 ML INSULN.PEN SUBCUT SCH ×2 (09:45→21:53)
[2016-11-19] MEDS: SERTRALINE HCL 50 MG TABLET PO SCH (11:35)
[2016-11-19] MEDS: LORATADINE 10 MG TABLET PO SCH (11:35)
[2016-11-19] MEDS: INSULIN LISPRO 100 UNIT/ML 3 ML VIAL SUBCUT PRN ×3 (11:37→21:53)
[2016-11-19 13:51] LABS: BLOOD UREA NITROGEN 37 mg/dL (7-20); CALCIUM 9.3 mg/dL (8.4-10.2); CREATININE RESULT 1.11 mg/dL (0.52-1.25); GLUCOSE 259 mg/dL (75-110)
[2016-11-19 13:52] LABS: ANION GAP 9 (5-19); CARBON DIOXIDE 27 mmol/L (22-30); CHLORIDE 104 mmol/L (98-107); SODIUM 140.1 mmol/L (137-145)
[2016-11-19 19:03] LABS: FREE T3 4.3 pg/mL (2.77-5.27)
[2016-11-19 19:17] LABS: THYROID STIMULATING HORMONE 0.66 uIU/mL (0.47-4.68)
--- NOTE | 2016-11-19 20:35 | PROGRESS NOTE E ---
Progress Note NAME: LIZ GONZALEZ : 1935 AGE: 81Y DATE: 11/19/2016 ROOM: 431 TIME SPENT MANAGING PATIENT: Twenty-five minutes. SUBJECTIVE: Patient's pain is generally well controlled except for when she moves with physical therapy. This is preventing her from wanting to participate in physical therapy much. On today's physical therapy activity, it is noted that she is max assist of 2 for bed mobility and that she was only able to take a couple of side steps again. This is not much progression from the last session if any. The patient has no fever, chills, headache, focal weakness, numbness, chest pain. OBJECTIVE: VITAL SIGNS: Temperature 98.0, blood pressure 120/56, pulse 80, respirations 18. GENERAL: She is alert, in no acute distress. Answers questions appropriately. HEENT: Sclerae are nonicteric. Conjunctivae are clear. Oropharynx has moist mucous membranes. NECK: No JVD. Midline trachea. RESPIRATORY: Clear to auscultation bilaterally with no wheezes or rhonchi. CARDIAC: Regular rate and rhythm. No murmurs, gallops, or rubs. ABDOMEN: Soft, nontender, nondistended. Positive bowel sounds. No rebound. No guarding. EXTREMITIES: No edema, cyanosis, or clubbing. NEUROLOGIC: She is alert. She is oriented to person only. Cranial nerves intact. No focal deficits. SKIN: No rashes or wounds. PSYCHIATRIC: Depressed mood somewhat. LABORATORY: White blood count 16.1, hemoglobin 12.1. Glucose 254. Blood and urine culture is negative. ASSESSMENT AND PLAN: 1. PELVIC FRACTURE. Patient is making very slow progress in physical therapy and I have discussed with her daughter today that she will likely need to go to a rehab facility. Wily of case management was present at time of this discussion and will work in this direction. 2. LEUKOCYTOSIS. Patient is afebrile. Blood cultures and urine culture were negative. Chest x-ray is negative. Discontinue Rocephin. Complete empiric course of doxycycline until 11/26/2016. 3. URETERAL MASS. Patient has cystoscopy scheduled in [place] on 12/03/[address] Alexis. She was supposed to have a preoperative evaluation on 11/19/[address] Alexis in the [place] office. This will have to be rescheduled once she is discharged from the hospital. 4. DIABETES MELLITUS. Increase Lantus to 25 units subcutaneous twice daily. Patient normally take 32 units twice daily at home. Continue sliding scale coverage. 5. DEAFNESS. 6. DEMENTIA. Check TSH. DICTATING PHYSICIAN: MELONIE LIAO M.D. [id number] PHY#: [id number] ID: [id number] JOB#: [id number] ACCT: [id number] cc: >
[2016-11-19] MEDS: SIMVASTATIN 40 MG TABLET PO SCH (21:55)
[2016-11-19] MEDS: LATANOPROST 0.005% OPH SOLN 2.5 ML OU SCH (21:56)
[2016-11-19] MEDS ORDERED: DOXYCYCLINE HYCLATE 100 MG TABLET PO ONE (22:14)
[2016-11-20] MEDS: ONDANSETRON HCL INJ/PF 4 MG/2 ML SDV IV PRN (02:00)
[2016-11-20 05:56] LABS: ABSOLUTE BASOPHILS # (AUTO) 0.2 10^3/uL (0.0-0.2); ABSOLUTE EOSINOPHILS # (AUTO) 0.6 10^3/uL (0.0-0.6); ABSOLUTE LYMPHOCYTES (AUTO) 4.9 10^3/uL (0.5-4.7); ABSOLUTE MONOCYTES (AUTO) 1.7 10^3/uL (0.1-1.4); ABSOLUTE NEUT (AUTO) 10.6 10^3/uL (1.7-8.2); EOSINOPHILS % (AUTO) 3.3 % (0-6); HEMATOCRIT 34.5 % (36.0-47.0); HEMOGLOBIN 12.2 g/dL (12.0-15.5); HGB HCT DIFFERENCE 2.1; LYMPHOCYTES % (AUTO) 27.2 % (13-45); MEAN CORPUSCULAR HEMOGLOBIN 32.2 pg (27.0-33.4); MEAN CORPUSCULAR HGB CONC 35.4 g/dL (32.0-36.0); MEAN CORPUSCULAR VOLUME 91 fl (80-97); MONOCYTES % (AUTO) 9.6 % (3-13); RED BLOOD COUNT 3.79 10^6/uL (3.72-5.28); SEGMENTED NEUTROPHILS % (AUTO) 58.9 % (42-78); WHITE BLOOD COUNT 17.9 10^3/uL (4.0-10.5)
[2016-11-20 06:15] LABS: ANION GAP 10 (5-19); BLOOD UREA NITROGEN 36 mg/dL (7-20); CALCIUM 9.4 mg/dL (8.4-10.2); CARBON DIOXIDE 26 mmol/L (22-30); CHLORIDE 103 mmol/L (98-107); CREATININE RESULT 0.93 mg/dL (0.52-1.25); GLUCOSE 202 mg/dL (75-110); POTASSIUM 5.1 mmol/L (3.6-5.0); SODIUM 138.8 mmol/L (137-145)
--- NOTE | 2016-11-20 08:32 | PDOC CONSULTATION ---
Consultation Consult Date: 11/20/16 Attending physician:: MELONIE LIAO Consult reason:: Leukocytosis History of Present Illness Admission Date/PCP: 11/15/16 17:18 Patient complains of: Leukocytosis History of Present Illness: 81-year-old female with recent history of pelvic fracture, she is also had a persistent leukocytosis. Infective workup has been recently negative. I reviewed labs going back to 2010, she has had a white count anywhere from 11-17 during this time, primarily neutrophilia, hemoglobin is been in the 11-12 range , platelets of been normal. Past Medical History Cardiac Medical History: Reports: Hyperlipidema, Hypertension Denies: Atrial Fibrillation, Congestive Heart Failure, Coronary Artery Disease, Myocardial Infarction, Peripheral Vascular Disease, Pulmonary Embolism , Heart Murmur Pulmonary Medical History: Reports: Bronchitis Denies: Asthma, Chronic Obstructive Pulmonary Disease (COPD), Pneumonia, Respiratory Failure, Sleep Apnea, Tuberculosis EENT Medical History: Reports: None Neurological Medical History: Reports: None Denies: Seizures Endocrine Medical History: Reports: Diabetes Mellitus Type 2, Hypothyroidism Denies: Hyperthyroidism Renal/ Medical History: Reports: None, Other - Ureteral mass, hematuria Denies: End Stage Renal Disease Malignancy Medical History: Denies: Breast Cancer, Cervical Cancer, Leukemia, Lung Cancer, Ovarian Cancer GI Medical History: Reports: None Denies: Crohn's Disease, Gastroesophageal Reflux Disease, Hiatal Hernia Musculoskeltal Medical History: Reports: Arthritis - spine and knees Denies: Fibromyalgia Psychiatric Medical History: Reports: Dementia Denies: Bipolar Disorder, Depression, Post Traumatic Stress Disorder Hematology: Denies: Anemia, Hemophilia, Sickle Cell Disease Infectious Medical History: Denies: HIV Past Surgical History Past Surgical History: Reports: Appendectomy, Orthopedic Surgery - R knee Denies: Amputation, Section, Cholecystectomy, Colostomy, Coronary Artery Bypass Graft, Gastric Bypass Surgery, Herniorrhaphy, Hysterectomy, Mastectomy, Pacemaker, Tonsillectomy, Tubal Ligation Social History Lives with: Spouse/Significant other Smoking Status: Unknown if Ever Smoked Frequency of Alcohol Use: None Hx Recreational Drug Use: No Hx Prescription Drug Abuse: No - Advance Directive Resuscitation Status: Full Code Family History Family History: Reviewed & Not Pertinent Parental Family History Reviewed: Yes Children Family History Reviewed: Yes Sibling(s) Family History Reviewed.: Yes Medication/Allergy Home Medications: Ascorbic Acid [Vitamin C] 1,000 mg PO Q2D 11/16/16 Atenolol [Tenormin] 12.5 mg PO ASDIR PRN 11/16/16 Fexofenadine HCl [Allergy Relief] 180 mg PO DAILY 11/16/16 Hydrocodone/Acetaminophen [[place] 5-325 mg Tablet] 1 tab PO Q6HP PRN 11/16/16 Insulin Glargine,Hum.rec.anlog [Lantus] 32 unit SQ Q12 11/16/16 Latanoprost 2.5 ml OU QHS 11/16/16 Multivitamin [Daily Multiple Vitamin] 2 each PO DAILY 11/16/16 Sertraline HCl [Zoloft] 100 mg PO DAILY 11/16/16 Simvastatin 40 mg PO QHS 11/16/16 Tamsulosin HCl [Flomax] 0.4 mg PO DAILY 11/16/16 Zolpidem Tartrate [Ambien 5 mg Tablet] 5 mg PO HSP PRN 11/16/16 Allergies/Adverse Reactions: erythromycin base [Erythromycin Base] Allergy (Severe, Verified 11/15/16 16:01) indomethacin [From Indocin] Allergy (Severe, Verified 11/15/16 16:01) Sulfa (Sulfonamide Antibiotics) Allergy (Verified 11/15/16 16:01) Hives Review of Systems ROS unobtainable: Other - Hard to obtain given hearing status Physical Exam Vital Signs: Temp Pulse Resp BP Pulse Ox 98.7 F 75 19 134/62 H 96 11/19/16 23:55 11/19/16 23:55 11/19/16 23:55 11/19/16 23:55 11/19/16 23:55 Intake & Output 11/19/16 11/20/16 11/21/16 06:59 06:59 06:59 Intake Total 450 840 Output Total 400 1040 Balance 50 -200 Weight 72.4 kg 72.8 kg General appearance: PRESENT: no acute distress, well-developed, well-nourished Head exam: PRESENT: atraumatic, normocephalic Eye exam: PRESENT: conjunctiva pink, EOMI, PERRLA. ABSENT: scleral icterus Ear exam: PRESENT: normal external ear exam Mouth exam: PRESENT: moist, tongue midline Neck exam: ABSENT: carotid bruit, JVD, lymphadenopathy, thyromegaly Respiratory exam: PRESENT: clear to auscultation moose. ABSENT: rales, rhonchi, wheezes Cardiovascular exam: PRESENT: RRR. ABSENT: diastolic murmur, rubs, systolic murmur Pulses: PRESENT: normal dorsalis pedis pul Vascular exam: PRESENT: normal capillary refill GI/Abdominal exam: PRESENT: normal bowel sounds, soft. ABSENT: distended, guarding, mass, organolmegaly, rebound, tenderness Rectal exam: PRESENT: deferred Extremities exam: PRESENT: full ROM. ABSENT: calf tenderness, clubbing, pedal edema Neurological exam: PRESENT: alert, awake, oriented to person, oriented to place , oriented to time, oriented to situation, CN II-XII grossly intact. ABSENT: motor sensory deficit Psychiatric exam: PRESENT: appropriate affect, normal mood. ABSENT: homicidal ideation, suicidal ideation Skin exam: PRESENT: dry, intact, warm. ABSENT: cyanosis, rash Results Laboratory Results: 11/20/16 05:29 11/20/16 05:29 11/18/16 11/18/16 11/19/16 08:55 08:55 18:00 WBC 16.1 H RBC 3.76 Hgb 12.1 Hct 34.3 L MCV 91 MCH 32.2 MCHC 35.3 RDW 13.2 Plt Count 281 Seg Neutrophils % 47.8 Lymphocytes % 32.6 Monocytes % 13.4 H Eosinophils % 5.4 Basophils % 0.8 Absolute Neutrophils 7.7 Absolute Lymphocytes 5.3 H Absolute Monocytes 2.2 H Absolute Eosinophils 0.9 H Absolute Basophils 0.1 Sodium 140.1 Potassium 5.0 Chloride 104 Carbon Dioxide 27 Anion Gap 9 BUN 37 H Creatinine 1.11 Est GFR ( Amer) 57 L Est GFR (Non-Af Amer) 47 L Glucose 259 H Calcium 9.3 TSH 0.66 Free T4 1.06 Free T3 pg/mL 4.30 11/20/16 11/20/16 05:29 05:29 WBC 17.9 H RBC 3.79 Hgb 12.2 Hct 34.5 L MCV 91 MCH 32.2 MCHC 35.4 RDW 13.0 Plt Count 342 Seg Neutrophils % 58.9 Lymphocytes % 27.2 Monocytes % 9.6 Eosinophils % 3.3 Basophils % 1.0 Absolute Neutrophils 10.6 H Absolute Lymphocytes 4.9 H Absolute Monocytes 1.7 H Absolute Eosinophils 0.6 Absolute Basophils 0.2 Sodium 138.8 Potassium 5.1 H Chloride 103 Carbon Dioxide 26 Anion Gap 10 BUN 36 H Creatinine 0.93 Est GFR ( Amer) > 60 Est GFR (Non-Af Amer) 58 L Glucose 202 H Calcium 9.4 TSH Free T4 Free T3 pg/mL Impressions: Hip X-Ray 11/15/16 14:22 IMPRESSION: FRACTURES OF THE LEFT SUPERIOR AND INFERIOR PUBIC RAMI. NO DEFINITE ACUTE TRAUMATIC FINDINGS IN THE LEFT HIP ITSELF. Chest X-Ray 11/15/16 17:16 IMPRESSION: MILD CARDIOMEGALY. MILD CHRONIC INTERSTITIAL CHANGES. NO ACUTE RADIOGRAPHIC FINDING IN THE CHEST. Assessment & Plan - Diagnosis (1) Leukocytosis Qualifiers: Leukocytosis type: unspecified Qualified Code(s): D72.829 - Elevated white blood cell count, unspecified Plan: Unknown cause, today sent workup including flow cytometry and FISH for BCR ABL. - Time Time Spent: 50 to 70 Minutes Critical Time spent with patient: 25-34 minutes
[2016-11-20] MEDS: OXYCODONE HCL IR 5 MG TABLET PO PRN ×2 (08:50→21:37)
[2016-11-20] MEDS: DOXYCYCLINE HYCLATE 100 MG TABLET PO SCH ×2 (10:16→21:37)
[2016-11-20] MEDS: DOCUSATE SODIUM 100 MG CAPSULE PO SCH ×2 (10:16→19:00)
[2016-11-20] MEDS: MULTIVITAMIN TABLET PO SCH (10:17)
[2016-11-20] MEDS: INSULIN GLARGINE,HUM.REC.ANLOG 300 UNIT/3 ML INSULN.PEN SUBCUT SCH ×2 (10:19→21:36)
[2016-11-20] MEDS: ENOXAPARIN SODIUM INJ 40 MG/0.4 ML DISP.SYRIN SUBCUT SCH (10:21)
[2016-11-20] MEDS: LORATADINE 10 MG TABLET PO SCH (13:03)
[2016-11-20] MEDS: SERTRALINE HCL 50 MG TABLET PO SCH (13:03)
[2016-11-20] MEDS: INSULIN LISPRO 100 UNIT/ML 3 ML VIAL SUBCUT PRN ×2 (13:09→21:35)
[2016-11-20] MEDS: HYDROMORPHONE HCL INJ/PF 2 MG/ML AMPULE IV PRN (16:13)
--- NOTE | 2016-11-20 19:35 | PROGRESS NOTE E ---
Progress Note NAME: LIZ GONZALEZ : 1935 AGE: 81Y DATE: 11/20/2016 ROOM: 431 Time spent managing the patient was 25 minutes. SUBJECTIVE: The patient is still having a significant amount of pain with physical therapy and has extremely limited mobility. She denies fever, chills, headache, chest pain, shortness of breath. OBJECTIVE: VITAL SIGNS: Temperature 99.7, blood pressure 128/65, pulse 90, respirations 20. GENERAL: She is alert, hard of hearing, in no acute distress. HEENT: Sclera is nonicteric. Conjunctivae clear. Oropharynx has moist mucous membranes. NECK: No JVD. Midline trachea. RESPIRATORY: Clear to auscultation. No wheezes or rhonchi. CARDIAC: Regular rate and rhythm. No murmurs, gallops or rubs. ABDOMEN: Soft, nontender, and nondistended. Positive bowel sounds. No rebound or guarding. EXTREMITIES: Have no edema, cyanosis or clubbing. NEUROLOGIC: She is alert. She is oriented to person only. PSYCHIATRIC: Depressed mood. LABORATORY STUDIES: White blood cell count 17.9, hemoglobin 12.2. Sodium 138, potassium 5.1, chloride 103, bicarb 26, BUN 36, creatinine 0.9, glucose 202. TSH 0.66. ASSESSMENT AND PLAN: 1. PELVIC FRACTURE. The patient is progressing very slowly and we have had discussion with family again today. They are now willing to go to [facility] for rehab prior to returning home. Case Management states that the patient has been made a bed offer this afternoon and she can go on Wednesday. 2. LEUKOCYTOSIS. The patient is afebrile. Blood culture and urine culture are negative. Chest x-ray negative. She is completing empiric course of doxycycline until 11/26/2016. She has been seen by Dr. Garrett of hematology today and leukemia panel has been sent. She can follow up with Hematology as an outpatient for this. 3. URETERAL MASS. The patient was in the process of being evaluated by cystoscopy on 12/03/[address] Alexis of urology. She was supposed to have preoperative evaluation on 11/19/2016 but missed this appointment. This will have to be rescheduled upon discharge from the hospital. Transportation will need to be arranged by the rehab facility for the patient to go to preop evaluation as soon as possible and then to cystoscopy in [place] on 12/03/[address] Alexis of urology. 4. DIABETES MELLITUS. Increase Lantus to 30 units subcutaneously twice daily. Continue sliding-scale insulin coverage. 5. DEAFNESS. 6. DEMENTIA. DICTATING PHYSICIAN: MELONIE LIAO M.D. [id number] PHY#: [id number] ID: [id number] JOB#: [id number] ACCT: [id number] cc: >
[2016-11-20] MEDS: SIMVASTATIN 40 MG TABLET PO SCH (21:37)
[2016-11-20] MEDS: LATANOPROST 0.005% OPH SOLN 2.5 ML OU SCH (21:38)
[2016-11-21] MEDS: HYDROMORPHONE HCL INJ/PF 2 MG/ML AMPULE IV PRN (02:16)
[2016-11-21] MEDS: INSULIN LISPRO 100 UNIT/ML 3 ML VIAL SUBCUT PRN ×3 (08:34→22:41)
[2016-11-21] MEDS: ENOXAPARIN SODIUM INJ 40 MG/0.4 ML DISP.SYRIN SUBCUT SCH (08:34)
[2016-11-21] MEDS: DOXYCYCLINE HYCLATE 100 MG TABLET PO SCH ×2 (09:43→22:42)
[2016-11-21] MEDS: MULTIVITAMIN TABLET PO SCH (09:44)
[2016-11-21] MEDS: ASCORBIC ACID 500 MG TABLET PO SCH (09:44)
[2016-11-21] MEDS: DOCUSATE SODIUM 100 MG CAPSULE PO SCH ×2 (09:45→17:30)
[2016-11-21] MEDS: INSULIN GLARGINE,HUM.REC.ANLOG 300 UNIT/3 ML INSULN.PEN SUBCUT SCH ×2 (09:45→22:42)
[2016-11-21] MEDS: SERTRALINE HCL 50 MG TABLET PO SCH (11:36)
[2016-11-21] MEDS: LORATADINE 10 MG TABLET PO SCH (11:36)
--- NOTE | 2016-11-21 11:44 | PDOC PROGRESS REPORT ---
Subjective Progress Note for:: 11/21/16 Subjective:: No acute events Physical Exam Vital Signs: Temp Pulse Resp BP Pulse Ox 98.2 F 86 16 127/63 H 91 L 11/21/16 08:00 11/21/16 08:00 11/21/16 08:00 11/21/16 08:00 11/21/16 08:00 Intake & Output 11/20/16 11/21/16 11/22/16 06:59 06:59 06:59 Intake Total 840 120 Output Total 1040 150 Balance -200 -30 Weight 72.8 kg 71.9 kg General appearance: PRESENT: no acute distress, well-developed, well-nourished Head exam: PRESENT: atraumatic, normocephalic Eye exam: PRESENT: conjunctiva pink, EOMI, PERRLA. ABSENT: scleral icterus Ear exam: PRESENT: normal external ear exam Mouth exam: PRESENT: moist, tongue midline Neck exam: ABSENT: carotid bruit, JVD, lymphadenopathy, thyromegaly Respiratory exam: PRESENT: clear to auscultation moose. ABSENT: rales, rhonchi, wheezes Cardiovascular exam: PRESENT: RRR. ABSENT: diastolic murmur, rubs, systolic murmur Pulses: PRESENT: normal dorsalis pedis pul Vascular exam: PRESENT: normal capillary refill GI/Abdominal exam: PRESENT: normal bowel sounds, soft. ABSENT: distended, guarding, mass, organolmegaly, rebound, tenderness Rectal exam: PRESENT: deferred Extremities exam: PRESENT: full ROM. ABSENT: calf tenderness, clubbing, pedal edema Neurological exam: PRESENT: alert, awake, oriented to person, oriented to place , oriented to time, oriented to situation, CN II-XII grossly intact. ABSENT: motor sensory deficit Psychiatric exam: PRESENT: appropriate affect, normal mood. ABSENT: homicidal ideation, suicidal ideation Skin exam: PRESENT: dry, intact, warm. ABSENT: cyanosis, rash Results Laboratory Results: 11/20/16 05:29 11/20/16 05:29 11/15/16 22:47 Blood Blood Culture - Final NO GROWTH IN 5 DAYS 11/15/16 22:02 Blood Blood Culture - Final NO GROWTH IN 5 DAYS Impressions: Hip X-Ray 11/15/16 14:22 IMPRESSION: FRACTURES OF THE LEFT SUPERIOR AND INFERIOR PUBIC RAMI. NO DEFINITE ACUTE TRAUMATIC FINDINGS IN THE LEFT HIP ITSELF. Chest X-Ray 11/15/16 17:16 IMPRESSION: MILD CARDIOMEGALY. MILD CHRONIC INTERSTITIAL CHANGES. NO ACUTE RADIOGRAPHIC FINDING IN THE CHEST. Assessment & Plan - Diagnosis (1) Leukocytosis Qualifiers: Qualified Code(s): D72.829 - Elevated white blood cell count, unspecified Plan: As noted previously most likely reactive in nature but workup is pending, she needs to have follow-up in our office for evaluation of his labs, it would take probably 2-3 weeks for those labs to come back as they are both send out labs. - Time Time Spent with patient: 15-24 minutes Critical Time spent with patient: 15-24 minutes
--- NOTE | 2016-11-21 11:53 | PDOC PROGRESS REPORT ---
Subjective Progress Note for:: 11/21/16 Subjective:: Patient seen on morning rounds. She is resting comfortably in bed. She denies any shortness of breath, cough or dyspnea. She denies any nausea, vomiting or abdominal pain. She does admit to pain in her lower back. She states she has a poor appetite because she just does not feel well. Rest of review of systems is negative. Physical Exam Vital Signs: Temp Pulse Resp BP Pulse Ox 98.2 F 86 16 127/63 H 91 L 11/21/16 08:00 11/21/16 08:00 11/21/16 08:00 11/21/16 08:00 11/21/16 08:00 Intake & Output 11/20/16 11/21/16 11/22/16 06:59 06:59 06:59 Intake Total 840 120 Output Total 1040 150 Balance -200 -30 Weight 72.8 kg 71.9 kg General appearance: PRESENT: no acute distress, well-developed, well-nourished Head exam: PRESENT: atraumatic, normocephalic Eye exam: PRESENT: conjunctiva pink, EOMI, PERRLA. ABSENT: scleral icterus Ear exam: PRESENT: normal external ear exam Mouth exam: PRESENT: moist, tongue midline Neck exam: ABSENT: carotid bruit, JVD, lymphadenopathy, thyromegaly Respiratory exam: PRESENT: clear to auscultation moose. ABSENT: rales, rhonchi, wheezes Cardiovascular exam: PRESENT: RRR. ABSENT: diastolic murmur, rubs, systolic murmur Pulses: PRESENT: normal dorsalis pedis pul Vascular exam: PRESENT: normal capillary refill GI/Abdominal exam: PRESENT: normal bowel sounds, soft. ABSENT: distended, guarding, mass, organolmegaly, rebound, tenderness Rectal exam: PRESENT: deferred Extremities exam: PRESENT: full ROM. ABSENT: calf tenderness, clubbing, pedal edema Musculoskeletal exam: PRESENT: full ROM - Lumbar spine, tenderness Neurological exam: PRESENT: alert, awake, oriented to person, oriented to place , oriented to time, oriented to situation, CN II-XII grossly intact. ABSENT: motor sensory deficit Psychiatric exam: PRESENT: flat affect Skin exam: PRESENT: dry, intact, warm. ABSENT: cyanosis, rash Results Laboratory Results: 11/20/16 05:29 11/20/16 05:29 11/15/16 22:47 Blood Blood Culture - Final NO GROWTH IN 5 DAYS 11/15/16 22:02 Blood Blood Culture - Final NO GROWTH IN 5 DAYS Impressions: Hip X-Ray 11/15/16 14:22 IMPRESSION: FRACTURES OF THE LEFT SUPERIOR AND INFERIOR PUBIC RAMI. NO DEFINITE ACUTE TRAUMATIC FINDINGS IN THE LEFT HIP ITSELF. Chest X-Ray 11/15/16 17:16 IMPRESSION: MILD CARDIOMEGALY. MILD CHRONIC INTERSTITIAL CHANGES. NO ACUTE RADIOGRAPHIC FINDING IN THE CHEST. Assessment & Plan - Diagnosis (1) Pelvic fracture Qualifiers: Encounter type: initial encounter Pelvic bone location: pubis Sublocation of pubis: superior rim Fracture type: closed Laterality: left Qualified Code(s): S32.512A - Fracture of superior rim of left pubis, initial encounter for closed fracture Is this a current diagnosis for this admission?: YesPlan: Oral analgesics. Physical therapy, she will need rehab placement postdischarge. (2) SIRS (systemic inflammatory response syndrome) Is this a current diagnosis for this admission?: YesPlan: Tachycardia and hypotension have resolved fluid volume. It does not appear to be an infectious source. (3) Diabetes Qualifiers: Diabetes mellitus type: type 2 Diabetes mellitus complication status: without complication Is this a current diagnosis for this admission?: YesPlan: Continue current medications and sliding scale coverage (4) Deafness Is this a current diagnosis for this admission?: Yes (5) Leukocytosis Qualifiers: Leukocytosis type: unspecified Qualified Code(s): D72.829 - Elevated white blood cell count, unspecified Is this a current diagnosis for this admission?: YesPlan: Appears chronic. No infectious origin found. Dr Garrett consulted studies pending (6) Ureteral mass Is this a current diagnosis for this admission?: Yes - Time Time Spent with patient: 25-34 minutes Critical Time spent with patient: 15-24 minutes Medications reviewed and adjusted accordingly: Yes Anticipated discharge: Acute Rehab Within: when bed available
[2016-11-21] MEDS: LATANOPROST 0.005% OPH SOLN 2.5 ML OU SCH (22:42)
[2016-11-21] MEDS: SIMVASTATIN 40 MG TABLET PO SCH (22:42)
[2016-11-21] MEDS: OXYCODONE HCL IR 5 MG TABLET PO PRN (22:50)
[2016-11-22] MEDS: ENOXAPARIN SODIUM INJ 40 MG/0.4 ML DISP.SYRIN SUBCUT SCH (09:23)
[2016-11-22] MEDS: INSULIN GLARGINE,HUM.REC.ANLOG 300 UNIT/3 ML INSULN.PEN SUBCUT SCH ×2 (09:24→22:25)
[2016-11-22] MEDS: DOXYCYCLINE HYCLATE 100 MG TABLET PO SCH ×2 (09:25→22:25)
[2016-11-22] MEDS: MULTIVITAMIN TABLET PO SCH (09:25)
[2016-11-22] MEDS: DOCUSATE SODIUM 100 MG CAPSULE PO SCH ×2 (09:26→17:32)
--- NOTE | 2016-11-22 11:01 | PDOC PROGRESS REPORT ---
Subjective Progress Note for:: 11/22/16 Subjective:: Patient seen on morning rounds. She is resting comfortably in bed. She is confused this morning. She sees her dog in the room. She knows she is in the hospital. She has recently been medicated for back pain. She denies any shortness of breath, cough or dyspnea. She denies any nausea, vomiting or abdominal pain. She states she has a poor appetite because she just does not feel well. Rest of review of systems is negative. Physical Exam Vital Signs: Temp Pulse Resp BP Pulse Ox 98.1 F 103 H 18 126/69 H 92 11/21/16 23:53 11/21/16 23:53 11/21/16 23:53 11/21/16 23:53 11/21/16 23:53 Intake & Output 11/21/16 11/22/16 11/23/16 06:59 06:59 06:59 Intake Total 120 430 Output Total 150 425 Balance -30 5 Weight 71.9 kg 70.8 kg General appearance: PRESENT: no acute distress, obese, well-developed, well- nourished Head exam: PRESENT: atraumatic, normocephalic Eye exam: PRESENT: conjunctiva pink, EOMI, PERRLA. ABSENT: scleral icterus Ear exam: PRESENT: normal external ear exam Mouth exam: PRESENT: moist, tongue midline Neck exam: ABSENT: carotid bruit, JVD, lymphadenopathy, thyromegaly Respiratory exam: PRESENT: clear to auscultation moose. ABSENT: rales, rhonchi, wheezes Cardiovascular exam: PRESENT: RRR. ABSENT: diastolic murmur, rubs, systolic murmur Pulses: PRESENT: normal dorsalis pedis pul GI/Abdominal exam: PRESENT: normal bowel sounds, soft. ABSENT: distended, guarding, mass, organolmegaly, rebound, tenderness Rectal exam: PRESENT: deferred Extremities exam: PRESENT: full ROM. ABSENT: calf tenderness, clubbing, pedal edema Neurological exam: PRESENT: alert, awake, oriented to person, CN II-XII grossly intact. ABSENT: motor sensory deficit Psychiatric exam: PRESENT: appropriate affect, normal mood. ABSENT: homicidal ideation, suicidal ideation Skin exam: PRESENT: dry, intact, warm. ABSENT: cyanosis, rash Results Laboratory Results: 11/20/16 05:29 11/20/16 05:29 Impressions: Hip X-Ray 11/15/16 14:22 IMPRESSION: FRACTURES OF THE LEFT SUPERIOR AND INFERIOR PUBIC RAMI. NO DEFINITE ACUTE TRAUMATIC FINDINGS IN THE LEFT HIP ITSELF. Chest X-Ray 11/15/16 17:16 IMPRESSION: MILD CARDIOMEGALY. MILD CHRONIC INTERSTITIAL CHANGES. NO ACUTE RADIOGRAPHIC FINDING IN THE CHEST. Assessment & Plan - Diagnosis (1) Pelvic fracture Qualifiers: Encounter type: initial encounter Pelvic bone location: pubis Sublocation of pubis: superior rim Fracture type: closed Laterality: left Qualified Code(s): S32.512A - Fracture of superior rim of left pubis, initial encounter for closed fracture Is this a current diagnosis for this admission?: YesPlan: Oral analgesics. Physical therapy, she will need rehab placement postdischarge. (2) SIRS (systemic inflammatory response syndrome) Is this a current diagnosis for this admission?: YesPlan: Tachycardia and hypotension have resolved fluid volume. It does not appear to be an infectious source. (3) Diabetes Qualifiers: Diabetes mellitus type: type 2 Diabetes mellitus complication status: without complication Is this a current diagnosis for this admission?: YesPlan: Continue current medications and sliding scale coverage (4) Deafness Is this a current diagnosis for this admission?: Yes (5) Leukocytosis Qualifiers: Leukocytosis type: unspecified Qualified Code(s): D72.829 - Elevated white blood cell count, unspecified Is this a current diagnosis for this admission?: YesPlan: Appears chronic. No infectious origin found. Dr Garrett consulted studies pending (6) Ureteral mass Is this a current diagnosis for this admission?: YesPlan: She will be followed up as an outpatient - Time Time Spent with patient: 25-34 minutes Critical Time spent with patient: 15-24 minutes Medications reviewed and adjusted accordingly: Yes Anticipated discharge: Acute Rehab
[2016-11-22] MEDS: SERTRALINE HCL 50 MG TABLET PO SCH (11:37)
[2016-11-22] MEDS: LORATADINE 10 MG TABLET PO SCH (11:38)
[2016-11-22] MEDS: OXYCODONE HCL IR 5 MG TABLET PO PRN ×2 (11:38→22:35)
[2016-11-22] MEDS: INSULIN LISPRO 100 UNIT/ML 3 ML VIAL SUBCUT PRN ×2 (11:38→17:32)
[2016-11-22] MEDS: SIMVASTATIN 40 MG TABLET PO SCH (22:25)
[2016-11-22] MEDS: LATANOPROST 0.005% OPH SOLN 2.5 ML OU SCH (22:25)
[2016-11-23 05:56] LABS: ABSOLUTE BASOPHILS # (AUTO) 0.1 10^3/uL (0.0-0.2); ABSOLUTE EOSINOPHILS # (AUTO) 0.2 10^3/uL (0.0-0.6); ABSOLUTE LYMPHOCYTES (AUTO) 2.8 10^3/uL (0.5-4.7); ABSOLUTE MONOCYTES (AUTO) 2.1 10^3/uL (0.1-1.4); ABSOLUTE NEUT (AUTO) 11.6 10^3/uL (1.7-8.2); BASOPHILS % (AUTO) 0.8 % (0-2); EOSINOPHILS % (AUTO) 1.3 % (0-6); HEMATOCRIT 32.9 % (36.0-47.0); HEMOGLOBIN 12.1 g/dL (12.0-15.5); HGB HCT DIFFERENCE 3.4; LYMPHOCYTES % (AUTO) 16.7 % (13-45); MEAN CORPUSCULAR HEMOGLOBIN 32.7 pg (27.0-33.4); MEAN CORPUSCULAR HGB CONC 36.6 g/dL (32.0-36.0); MEAN CORPUSCULAR VOLUME 89 fl (80-97); MONOCYTES % (AUTO) 12.2 % (3-13); RED BLOOD COUNT 3.68 10^6/uL (3.72-5.28); RED CELL DISTRIBUTION WIDTH 13.3 % (11.5-14.0); WHITE BLOOD COUNT 16.9 10^3/uL (4.0-10.5)
[2016-11-23 06:09] LABS: BLOOD UREA NITROGEN 28 mg/dL (7-20); CALCIUM 9.6 mg/dL (8.4-10.2); CHLORIDE 105 mmol/L (98-107); CREATININE RESULT 0.85 mg/dL (0.52-1.25); GLUCOSE 69 mg/dL (75-110); POTASSIUM 4.2 mmol/L (3.6-5.0)
[2016-11-23 06:10] LABS: ANION GAP 9 (5-19); CARBON DIOXIDE 26 mmol/L (22-30); SODIUM 140.4 mmol/L (137-145)
[2016-11-23] MEDS: ENOXAPARIN SODIUM INJ 40 MG/0.4 ML DISP.SYRIN SUBCUT SCH (07:39)
[2016-11-23 08:31] VITALS: BP 112/68
[2016-11-23] MEDS: ASCORBIC ACID 500 MG TABLET PO SCH (09:15)
[2016-11-23] MEDS: DOXYCYCLINE HYCLATE 100 MG TABLET PO SCH (09:15)
[2016-11-23] MEDS: INSULIN GLARGINE,HUM.REC.ANLOG 300 UNIT/3 ML INSULN.PEN SUBCUT SCH (09:15)
[2016-11-23] MEDS: DOCUSATE SODIUM 100 MG CAPSULE PO SCH (09:15)
[2016-11-23] MEDS: MULTIVITAMIN TABLET PO SCH (09:15)
[2016-11-23] MEDS: SERTRALINE HCL 50 MG TABLET PO SCH (11:07)
[2016-11-23] MEDS: ONDANSETRON HCL INJ/PF 4 MG/2 ML SDV IV PRN (11:07)
[2016-11-23] MEDS: LORATADINE 10 MG TABLET PO SCH (11:07)
--- NOTE | 2016-11-23 11:43 | PDOC TRANSFER SUMMARY ---
General - Admit/Disc Date/PCP Admission Date/Primary Care Provider: 11/15/16 17:18 Discharge Date: 11/23/16 - Discharge Diagnosis (1) Pelvic fracture Is this a current diagnosis for this admission?: YesSummary: Continue with PT (2) SIRS (systemic inflammatory response syndrome) Is this a current diagnosis for this admission?: YesSummary: Resolved (3) Diabetes Is this a current diagnosis for this admission?: YesSummary: Continue with current insulin dose (4) Deafness Is this a current diagnosis for this admission?: YesSummary: Speak slowly and clearly to patient (5) Leukocytosis Is this a current diagnosis for this admission?: YesSummary: Appears chronic , being evalutated by hematology (6) Ureteral mass Is this a current diagnosis for this admission?: YesSummary: Was being worked up at [place]. Scheduled for cystoscopy on December 03 - Additional Information Resuscitation Status: Full Code Discharge Diet: Diabetic Discharge Activity: Activity As Tolerated, Balance Activity w/Rest Home Medications: Ascorbic Acid [Vitamin C] 1,000 mg PO Q2D 11/16/16 Atenolol [Tenormin] 12.5 mg PO ASDIR PRN 11/16/16 Fexofenadine HCl [Allergy Relief] 180 mg PO DAILY 11/16/16 Insulin Glargine,Hum.rec.anlog [Lantus] 32 unit SQ Q12 11/16/16 Latanoprost 2.5 ml OU QHS 11/16/16 Multivitamin [Daily Multiple Vitamin] 2 each PO DAILY 11/16/16 Sertraline HCl [Zoloft] 100 mg PO DAILY 11/16/16 Simvastatin 40 mg PO QHS 11/16/16 Tamsulosin HCl [Flomax] 0.4 mg PO DAILY 11/16/16 Acetaminophen [Tylenol 325 mg Tablet] 650 mg PO Q4HP PRN tablet 11/23/16 Doxycycline Hyclate [Vibramycin 100 mg Tablet] 100 mg PO Q12 #6 tablet 11/23/16 Oxycodone HCl [Oxy-Ir 5 mg Tablet] 10 mg PO Q4HP PRN #40 tablet 11/23/16 Zolpidem Tartrate [Ambien 5 mg Tablet] 5 mg PO HSP PRN #5 tablet 11/23/16 History of Present Illness Admission Date/PCP: 11/15/16 17:18 Patient complains of: Pelvic pain after fall 3 days prior History of Present Illness: LIZ GONZALEZ is a 81 year old female several days status post with pelvic pain. Patient found to have pelvic fracture in emergency department. She normally resides with her elderly . He did not want to take patient to the hospital because he was hoping nothing was wrong with her. Eventually her daughters insisted that she be brought emergency department for evaluation. In the emergency department she was also noted to have elevated white blood count. She apparently has been having some urologic issues that have been followed by Dr. Alexis of urology. From family description it sounds like she had some type of ureteral mass and is scheduled to have cystoscopy on 2016. She is supposed to have preoperative evaluation this . Hospital Course Hospital Course: Patient was admitted to the hospitalist service on telemetry. She had physical therapy consulted for mobilization assistance. She was started on oral analgesics for pain control. She had been taking [place] 5/325 mg tablets at home with no improvement in her pain. Pain was able to be controlled with current dose of oxycodone. Dr. Garrett, import coordinator, saw the patient in consult for persistent leukocytosis with no source of infection. She has been noted to have high white count on previous admissions with no infectious source as well. He obtained various lab studies which were mostly send out with results are not back yet. She is known to have a uterine mass is being worked up at the present time. She has a cystoscopy scheduled on December 03. She can follow-up with Dr. Edita Bansal as an outpatient when her cystoscopy has been completed. Patient has intermittent periods of confusion mostly at nighttime. She is able to reorient easily. She is extremely hard of hearing. Physical Exam Vital Signs: Temp Pulse Resp BP Pulse Ox 98.6 F 87 20 112/68 92 11/23/16 00:00 11/23/16 08:03 11/23/16 08:03 11/23/16 08:03 11/23/16 08:03 Intake & Output 11/22/16 11/23/16 11/24/16 06:59 06:59 06:59 Intake Total 430 650 Output Total 425 675 Balance 5 -25 Weight 70.8 kg 72.7 kg General appearance: PRESENT: no acute distress, obese, well-developed, well- nourished Head exam: PRESENT: atraumatic, normocephalic Eye exam: PRESENT: conjunctiva pink, EOMI, PERRLA. ABSENT: scleral icterus Ear exam: PRESENT: normal external ear exam Mouth exam: PRESENT: moist, tongue midline Neck exam: ABSENT: carotid bruit, JVD, lymphadenopathy, thyromegaly Respiratory exam: PRESENT: clear to auscultation moose. ABSENT: rales, rhonchi, wheezes Cardiovascular exam: PRESENT: RRR. ABSENT: diastolic murmur, rubs, systolic murmur Pulses: PRESENT: normal dorsalis pedis pul GI/Abdominal exam: PRESENT: normal bowel sounds, soft. ABSENT: distended, guarding, mass, organolmegaly, rebound, tenderness Rectal exam: PRESENT: deferred Extremities exam: PRESENT: full ROM. ABSENT: calf tenderness, clubbing, pedal edema Musculoskeletal exam: PRESENT: tenderness - lower back Neurological exam: PRESENT: alert, awake, oriented to person, oriented to place , CN II-XII grossly intact Psychiatric exam: PRESENT: appropriate affect, normal mood. ABSENT: homicidal ideation, suicidal ideation Skin exam: PRESENT: dry, intact, warm. ABSENT: cyanosis, rash Results Laboratory Results: 11/23/16 05:36 11/23/16 05:36 11/23/16 11/23/16 05:36 05:36 WBC 16.9 H RBC 3.68 L Hgb 12.1 Hct 32.9 L MCV 89 MCH 32.7 MCHC 36.6 H RDW 13.3 Plt Count 436 Seg Neutrophils % 69.0 Lymphocytes % 16.7 Monocytes % 12.2 Eosinophils % 1.3 Basophils % 0.8 Absolute Neutrophils 11.6 H Absolute Lymphocytes 2.8 Absolute Monocytes 2.1 H Absolute Eosinophils 0.2 Absolute Basophils 0.1 Sodium 140.4 Potassium 4.2 Chloride 105 Carbon Dioxide 26 Anion Gap 9 BUN 28 H Creatinine 0.85 Est GFR ( Amer) > 60 Est GFR (Non-Af Amer) > 60 Glucose 69 L Calcium 9.6 Magnesium 2.0 Impressions: Hip X-Ray 11/15/16 14:22 IMPRESSION: FRACTURES OF THE LEFT SUPERIOR AND INFERIOR PUBIC RAMI. NO DEFINITE ACUTE TRAUMATIC FINDINGS IN THE LEFT HIP ITSELF. Chest X-Ray 05/14/17 17:16 IMPRESSION: MILD CARDIOMEGALY. MILD CHRONIC INTERSTITIAL CHANGES. NO ACUTE RADIOGRAPHIC FINDING IN THE CHEST. Transfer Plan - Disposition Transfer Plan: [facility] - Time Spent with Patient Time spent with patient: Less than 30 Minutes Qualifiers PATEINT BEING DISCHARGED WITH ANY OF THE FOLLOWING DIAGNOSIS?: No Plan Time Spent: Less than 30 Minutes
== END 2016-11-23 14:59 | DRG 536 ==
LOC: ER 14:11 → EH 17:18 → UNDOADMIN 17:44 → 4S 19:52
PROVIDERS: ADMIT Family Medicine; ATTEND Family Medicine
DX: S32.512A Fracture of superior rim of left pubis, initial encounter for closed fracture (principal); R65.10 Systemic inflammatory response syndrome (SIRS) of non-infectious origin without acute organ dysfunction; W01.0XXA Fall on same level from slipping, tripping and stumbling without subsequent striking against object, initial encounter; Y93.9 Activity, unspecified; Y99.9 Unspecified external cause status; Y92.9 Unspecified place or not applicable; N28.9 Disorder of kidney and ureter, unspecified; I10 Essential (primary) hypertension; E78.5 Hyperlipidemia, unspecified; E11.65 Type 2 diabetes mellitus with hyperglycemia; E03.9 Hypothyroidism, unspecified; M47.9 Spondylosis, unspecified; M17.0 Bilateral primary osteoarthritis of knee; F03.90 Unspecified dementia, unspecified severity, without behavioral disturbance, psychotic disturbance, mood disturbance, and anxiety; H91.90 Unspecified hearing loss, unspecified ear; Z79.4 Long term (current) use of insulin; Z79.899 Other long term (current) drug therapy; Z88.1 Allergy status to other antibiotic agents; Z88.8 Allergy status to other drugs, medicaments and biological substances
CPT/HCPCS: 36415; 71010; 80048; 80053; 81001; 81206; 81207; 82550; 82553; 82962; 83735; 84439; 84443; 84481; 84484; 85025; 87040; 87086; 88184; 88185; 96374; 99285; G8978-GP; G8979-GP; J0696; J1170; J1650; J1815; J2405; J3490

== ENCOUNTER → 2017-03-23 | Outpatient (CLI) | payer MEDICARE, OTHER ==
--- NOTE | 2017-03-23 12:55 | RADIOLOGY REPORT (SQ) ---
EXAM DESCRIPTION: CT ABD/PELVIS NO ORAL OR IV COMPLETED DATE/TIME: 03/23/2017 11:40 am REASON FOR STUDY: RIGHT HYDRONEPHROSIS (N13.30) R10.9 UNSPECIFIED ABDOMINAL PAIN N13.30 UNSPECIFIE D HYDRONEPHROSIS COMPARISON: 11/13/2015. TECHNIQUE: CT scan of the abdomen and pelvis performed without intravenous or oral contrast. Images reviewed with lung, soft tissue, and bone windows. Reconstructed coronal and sagittal MPR images revi ewed. All images stored on PACS. All CT scanners at this facility use dose modulation, iterative reconstruction, and/or weight based d osing when appropriate to reduce radiation dose to as low as reasonably achievable (ALARA). [facility]: Dose Right [facility]: CareDose [facility]: Dose Right [facility]: Teradose 4D [facility]: [employer] RADIATION DOSE: Up-to-date CT equipment and radiation dose reduction techniques were employed. CTDIv ol: 9.7 mGy. DLP: 504 mGy-cm.mGy. LIMITATIONS: None. FINDINGS: LOWER CHEST: No significant findings. No nodules or infiltrates. NON-CONTRASTED LIVER, SPLEEN, ADRENALS: Evaluation limited by lack of IV contrast. Spleen surgically absent. No identified significant masses. PANCREAS: No masses. No peripancreatic inflammatory changes. GALLBLADDER: Surgically absent. RIGHT KIDNEY AND URETER: No suspicious masses. Assessment limited by lack of IV contrast. No signif icant calcifications. Moderate hydronephrosis and hydroureter. The ureter is dilated to the pelvis to the level of the uterus. LEFT KIDNEY AND URETER: No suspicious masses. Assessment limited by lack of IV contrast. No signifi cant calcifications. No hydronephrosis or hydroureter. AORTA AND RETROPERITONEUM: No aneurysm. No retroperitoneal masses or adenopathy. BOWEL AND PERITONEAL CAVITY: No obvious masses or inflammatory changes. No free fluid. APPENDIX: Not visualized. PELVIS, BLADDER, AND ABDOMINAL WALL:No abnormal masses. No free fluid. Bladder normal. BONES: Old pelvic fractures. Degenerative changes in the spine with prior kyphoplasty. OTHER: No other significant finding. IMPRESSION: 1. MODERATE HYDRONEPHROSIS AND HYDROURETER ON THE RIGHT SIDE TO THE LEVEL OF THE UTERUS. NO CALCULI VISUALIZED. NO OBVIOUS ETIOLOGY ALTHOUGH POSSIBLY EXTRINSIC COMPRESSION FROM THE UTERUS. 2. OTHER CHRONIC FINDINGS ABOVE. OTHERWISE NO SIGNIFICANT OR ACUTE PROCESS IN THE ABDOMEN OR PELV IS. COMMENT: Quality ID # [id number]: Final reports with documentation of one or more dose reduction techniques (e.g., Automated exposure control, adjustment of the mA and/or kV according to patient size, use of iterative reconstruction technique) TECHNICAL DOCUMENTATION: JOB ID: [id number] [employer]- All Rights Reserved
== END ==
LOC: RAD 11:00
PROVIDERS: ATTEND Urology
DX: N13.30 Unspecified hydronephrosis (principal)
CPT/HCPCS: 74176

== ENCOUNTER 2017-03-31 10:07 | Day surgery (SDC) | payer MEDICARE, OTHER ==
[2017-03-26 11:58] LABS: HEMATOCRIT 41.3 % (36.0-47.0); HGB HCT DIFFERENCE 3.7; MEAN CORPUSCULAR HEMOGLOBIN 32.1 pg (27.0-33.4); MEAN CORPUSCULAR HGB CONC 36.3 g/dL (32.0-36.0); MEAN CORPUSCULAR VOLUME 88 fl (80-97); RED BLOOD COUNT 4.67 10^6/uL (3.72-5.28); RED CELL DISTRIBUTION WIDTH 13.8 % (11.5-14.0); WHITE BLOOD COUNT 10.6 10^3/uL (4.0-10.5)
[2017-03-26 12:24] LABS: APPEARANCE,URINE CLEAR; BILIRUBIN,URINE NEGATIVE (NEGATIVE); GLUCOSE, URINE NEGATIVE (NEGATIVE); KETONES,URINE NEGATIVE (NEGATIVE); LEUKOCYTE ESTERASE,URINE NEGATIVE (NEGATIVE); NITRITE,URINE NEGATIVE (NEGATIVE); PROTEIN,URINE NEGATIVE (NEGATIVE); UROBILINOGEN,URINE NEGATIVE mg/dL (<2.0)
[2017-03-26 12:37] LABS: ANION GAP 14 (5-19); BLOOD UREA NITROGEN 20 mg/dL (7-20); CALCIUM 9.6 mg/dL (8.4-10.2); CARBON DIOXIDE 26 mmol/L (22-30); CHLORIDE 104 mmol/L (98-107); CREATININE RESULT 0.96 mg/dL (0.52-1.25); GLUCOSE 137 mg/dL (75-110); POTASSIUM 4.1 mmol/L (3.6-5.0); SODIUM 144.3 mmol/L (137-145)
--- NOTE | 2017-03-26 19:27 | EKG REPORT ---
SEVERITY:- NORMAL ECG - SINUS RHYTHM : Confirmed by: Chato Maher MD 26-Mar-2017 19:27:02
[~2017-03-31 10:07] MED LIST: LACTATED RINGERS 1000 ML IV PRN; LIDOCAINE 0.5% INJ-PF (5 MG/ML) 50 ML SDV SUBCUT PRN
[2017-03-31] MEDS ORDERED: MIDAZOLAM 2 MG/2 ML INJ ONE (12:15)
[2017-03-31] MEDS ORDERED: FENTANYL CITRATE INJ/PF 100 MCG/2 ML AMPUL ONE (12:15)
[2017-03-31] MEDS ORDERED: PROPOFOL INJ 200 MG/20 ML VIAL IV ONE (12:16)
[2017-03-31] MEDS ORDERED: CEFAZOLIN INJ 1 GM VIAL ONE (12:58)
[2017-03-31] MEDS ORDERED: ONDANSETRON HCL INJ/PF 4 MG/2 ML SDV IV PRN (14:15)
[2017-03-31] MEDS ORDERED: HYDROCODONE/ACETAMINOPHEN 5-325 MG TABLET PO PRN (14:15)
[2017-03-31 15:34] VITALS: BP 152/76
--- NOTE | 2017-03-31 16:57 | RADIOLOGY REPORT (SQ) ---
EXAM DESCRIPTION: PYELOGRAM RETROGRADE COMPLETED DATE/TIME: 03/31/2017 1:46 pm REASON FOR STUDY: RT RETROGRADE PYELOGRAM / URETEROSCOPY IN [place] N13.30 UNSPECIFIED HYDRONEPHROSI S COMPARISON: None. FLUOROSCOPY TIME: 1.21 minutes 6 images saved to PACS. TECHNIQUE: Intra-operative images acquired during surgical procedure to evaluate progress. NUMBER OF IMAGES: 6 images LIMITATIONS: None FINDINGS: Fluoroscopic images were obtained during performance of a retrograde pyelogram. Please re rafa to the surgeon's operative report for additional information IMPRESSION: IMAGE(S) OBTAINED DURING PROCEDURE. COMMENT: Quality ID [id number]: Final reports for procedures using fluoroscopy that document radiation exp osure indices, or exposure time and number of fluorographic images (if radiation exposure indices are not available) Please consult full operative report of the attending physician for description of the procedure. TECHNICAL DOCUMENTATION: JOB ID: [id number] [employer] All Rights Reserved
--- NOTE | 2017-03-31 18:12 | OPERATIVE REPORT E ---
Operative Report NAME: LIZ GONZALEZ : 1935 AGE: 82Y DATE OF SURGERY: ROOM: PREOPERATIVE DIAGNOSIS: Right hydronephrosis, obstruction of the right ureter. POSTOPERATIVE DIAGNOSES: 1. Right hydronephrosis, obstruction of the right ureter. 2. Ureteral mass. OPERATION: Cystoscopy, right retrograde pyelogram, ureteroscopy. SURGEON: BHAVIK BURRELL M.D. ANESTHESIA: General/MAC. PROCEDURE: The patient was taken to the cystoscopy suite and placed into the supine position on the cystoscopy table. After adequate anesthesia, she was placed into the lithotomy position and prepped and draped in the usual sterile fashion. Utilizing a 22-Haitian cystoscope, the bladder was inspected. There was no tumor, stone or erythema noted. The right ureteral orifice was visualized. A 5-Haitian open-ended ureteral catheter was placed in the distal ureter and the catheter was used to perform a retrograde pyelogram with contrast. Several films were taken and saved as part of her record during this procedure. Initially, there was a goblet effect in the ureter, indicating an intraluminal mass. Some contrast then was able to get above this area into what appeared to be an atretic ureter. Some contrast was then able to get up to the proximally dilated ureter and again there was evidence of some intraluminal obstruction. These films were saved for part of her record. The ureteral catheter was removed and a semirigid ureteroscope was placed into the ureter and advanced under direct vision. The ureter became tortuous just outside the bladder, approximately 2-3 cm, and the semirigid scope was unable to negotiate this. The ureter was fixed and not mobile at all in this area. The ureteroscope was then removed. A flexible ureteroscope was then utilized to try to visualize the cause of the obstruction. The flexible scope was then placed into the distal ureter and advanced under direct vision. Again, with the use of the wire, it was unable to negotiate the area just outside of the bladder, which was tortuous and above which the ureter appeared to be atretic. A Glidewire was able to go up a small distance, but then it was not apparent that the Glidewire was following the usual course of the ureter, so it was not left in place, was removed and no manipulation was attempted. All instruments were removed and the bladder was drained. The patient was returned to PACU in satisfactory condition. She tolerated the procedure well. DICTATING PHYSICIAN: BHAVIK BURRELL M.D. [id number] PHY#: [id number] ID: [id number] JOB#: [id number] ACCT: [id number] cc:BHAVIK BURRELL M.D. >
== END 2017-03-31 15:30 | disposition home or self-care (01) ==
LOC: OROUT 10:07
PROVIDERS: ATTEND Urology
PROC: BT1DZZZ Fluoroscopy of Right Kidney, Ureter and Bladder (ICD-10-PCS; principal; 2017-03-31 12:00)
DX: N13.30 Unspecified hydronephrosis (principal); E11.9 Type 2 diabetes mellitus without complications; M19.90 Unspecified osteoarthritis, unspecified site; E78.5 Hyperlipidemia, unspecified; J45.909 Unspecified asthma, uncomplicated; Z86.718 Personal history of other venous thrombosis and embolism; Z86.73 Personal history of transient ischemic attack (TIA), and cerebral infarction without residual deficits; Z88.1 Allergy status to other antibiotic agents
CPT/HCPCS: 52005; 93005; 36415; 82962; 85027; 80048; 81001; 74420; 93010; C1758; Q9967; J2250; J0690; J3010; J2704; 910

== ENCOUNTER → 2017-08-07 | Outpatient (CLI) | payer MEDICARE, OTHER ==
--- NOTE | 2017-08-07 16:50 | RADIOLOGY REPORT (SQ) ---
EXAM DESCRIPTION: MRI LUMBAR SPINE WITHOUT COMPLETED DATE/TIME: 08/07/2017 11:48 am REASON FOR STUDY: LOW BACK PAIN, LUMBAGO M54.5 LOW BACK PAIN COMPARISON: CT abdomen pelvis 03/23/2017 Retrograde study, 03/31/2017 TECHNIQUE: Sagittal and Axial imaging includes T1, T2, STIR and gradient echo sequences. Coronal T2/ HASTE imaging. LIMITATIONS: None. FINDINGS: VISUALIZED UPPER ABDOMEN: There is moderate to marked right hydronephrosis and hydroureter down to the level where the ureter crosses over the iliac vessels. At this point there is a filling defect worrisome for right distal ureteral stone. This is similar compared to a right retrograde st udy 03/31/[address] abdomen pelvis 03/23/2017. SEGMENTATION: No transitional anatomy. The lowest well-developed disc space is labeled L5-S1. ALIGNMENT: Anatomic. VERTEBRAE: Intact. BONE MARROW: Focal fat or hemangioma in the left S1 level. Bone cement in the L2 vertebral body. DISC SIGNAL: Diffuse decreased T2 weighted intervertebral disc signal. Disc space loss of height at T11-12, L1-2, L2-3, and L3-4 POSTERIOR ELEMENTS: Generally intact. No pars defect evident. HARDWARE: None in the spine. CORD AND CONUS: Normal in size and signal intensity. Conus at the L1-2 level. SOFT TISSUES: No aortic aneurysm seen. No bulky retroperitoneal adenopathy or mass. No paraspinal mas s or fluid. T11-12: At the upper edge of the field of view. Mild diffuse posterior disc bulging and mild facet and ligament hypertrophy is present without significant central or foraminal encroachment. T12-L1: No significant central or foraminal encroachment. Mild bilateral facet hypertrophy. L1-L2: Mild diffuse posterior disc bulge and bony spurring, moderate bilateral facet and ligament hyp ertrophy. Borderline central canal stenosis best shown on axial T2 images 7 and 8. Moderate right, mild left foraminal narrowing without exiting L1 nerve root impingement. L2-L3: Minimal posterior disc bulge and bony spurring, moderate bilateral facet and ligament hypertro phy, borderline central canal narrowing. Mild bilateral inferior foraminal narrowing without exiting L2 nerve root impingement. L3-L4: Mild central canal stenosis results from broad diffuse posterior disc bulge and bony spurring and moderate bilateral facet and ligament hypertrophy. Moderate to high-grade right, moderate left f oraminal narrowing. Partial effacement of the fat around the exiting right L3 nerve root in the neur al foramen L4-L5: Moderate central canal stenosis results from broad diffuse posterior disc bulge and bony spurr ing and moderate bilateral facet and ligament hypertrophy. Mild right, moderate left foraminal narro wing without definite exiting L4 nerve root impingement. L5-S1: Minimal posterior disc bulging, bulky bilateral facet hypertrophy. No central stenosis. No s ignificant foraminal narrowing. SACRUM: Visualized upper sacrum intact. OTHER: No other significant findings. IMPRESSION: Right-sided hydronephrosis and hydroureter, suspected distal right ureteral obstruction from stone or urothelial tumor Diffuse degenerative changes as above. Old bone cement in the L2 vertebral body TECHNICAL DOCUMENTATION: JOB ID: [id number] [employer]- All Rights Reserved
== END ==
LOC: RAD 10:49
PROVIDERS: ATTEND Orthopaedic Surgery
DX: M54.5 Low back pain (principal); M48.061 Spinal stenosis, lumbar region without neurogenic claudication
CPT/HCPCS: 72148

== ENCOUNTER → 2017-10-20 | Outpatient (CLI) | payer MEDICARE, OTHER ==
[2017-10-20 12:09] LABS: ALANINE AMINOTRANSFERASE 18 U/L (9-52); ALBUMIN 4.1 g/dL (3.5-5.0); ALKALINE PHOSPHATASE 85 U/L (38-126); ANION GAP 11 (5-19); ASPARTATE AMINO TRANSFERASE 21 U/L (14-36); BILIRUBIN,DIRECT 0.3 mg/dL (0.0-0.4); BILIRUBIN,TOTAL 0.7 mg/dL (0.2-1.3); BLOOD UREA NITROGEN 27 mg/dL (7-20); CALCIUM 9.7 mg/dL (8.4-10.2); CARBON DIOXIDE 30 mmol/L (22-30); CHLORIDE 106 mmol/L (98-107); CHOLESTEROL 169.01 mg/dL (0-200); GLUCOSE 72 mg/dL (75-110); POTASSIUM 4.1 mmol/L (3.6-5.0); SODIUM 147.1 mmol/L (137-145); TOTAL PROTEIN 7.3 g/dL (6.3-8.2); TRIGLYCERIDES 91 mg/dL (<150)
[2017-10-20 12:20] LABS: DIRECT LDL 78 mg/dL (<100)
[2017-10-20 12:22] LABS: FREE T4 (FREE THYROXINE) 0.86 ng/dL (0.78-2.19)
[2017-10-20 12:35] LABS: THYROID STIMULATING HORMONE 0.92 uIU/mL (0.47-4.68)
== END ==
LOC: OD 10:25
PROVIDERS: ATTEND Internal Medicine Nephrology
DX: E11.9 Type 2 diabetes mellitus without complications (principal); E78.2 Mixed hyperlipidemia; R53.83 Other fatigue; E55.9 Vitamin D deficiency, unspecified
CPT/HCPCS: 36415; 80053; 80061; 82306; 83036; 84439; 84443

== ENCOUNTER 2017-11-17 20:11 | Emergency (ER) | payer MEDICARE, OTHER ==
[2017-11-17] MEDS ORDERED: ONDANSETRON HCL INJ/PF 4 MG/2 ML SDV IV ONE (21:03)
[2017-11-17] MEDS ORDERED: NORMAL SALINE 1000 ML 1,000 ML IV ONE (21:04)
--- NOTE | 2017-11-17 21:13 | ER Document Report ---
ED General - General Stated Complaint: BLOOD IN URINE Time Seen by Provider: 11/17/17 20:52 TRAVEL OUTSIDE OF THE [place] IN LAST 30 DAYS: No - HPI Notes: Patient is an 82-year-old female with history of insulin-dependent diabetes who presents to the ED complaining of hematuria and blood in her Perez 1 day. 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 Family states that she has otherwise been well and has been eating and drinking without any difficulties. She has been having some bowel movements as well. They state that the urine had a slight discoloration over the last couple days, but not as noticeable as it is now. Daughter states that it started looking like pure blood over the last 24 hours. Patient states that she does have some nausea and some soreness to her abdomen , but otherwise no other concerns right now. Denies any headache, fever, neck pain, URI, sore throat, chest pain, palpitations, syncope, cough, shortness of breath, wheeze, dyspnea, vomiting/diarrhea, numbness/tingling, saddle anesthesia , muscle paralysis/weakness, or rash. - Related Data Allergies/Adverse Reactions: erythromycin base [Erythromycin Base] Allergy (Severe, Verified 03/26/17 09:14) indomethacin [From Indocin] Allergy (Severe, Verified 03/26/17 09:14) Sulfa (Sulfonamide Antibiotics) Allergy (Verified 03/26/17 09:14) Hives Past Medical History - Social History Smoking Status: Never Smoker Family History: Reviewed & Not Pertinent - Past Medical History Cardiac Medical History: Reports: Hx Hypercholesterolemia, Hx Hypertension Denies: Hx Atrial Fibrillation, Hx Congestive Heart Failure, Hx Coronary Artery Disease, Hx Heart Attack, Hx Peripheral Vascular Disease, Hx Pulmonary Embolism, Hx Heart Murmur Pulmonary Medical History: Reports: Hx Bronchitis Denies: Hx Asthma, Hx COPD, Hx Pneumonia, Hx Respiratory Failure, Hx Sleep Apnea, Hx Tuberculosis Neurological Medical History: Denies: Hx Cerebrovascular Accident - X1, Hx Seizures Endocrine Medical History: Reports: Hx Diabetes Mellitus Type 2, Hx Hypothyroidism. Denies: Hx Graves' Disease, Hx Hyperthyroidism Renal/ Medical History: Denies: Hx End Stage Renal Disease, Hx Kidney Stones, Hx Ovarian Cysts, Hx Peritoneal Dialysis, Hx Pelvic Inflammatory Disease Malignancy Medical History: Denies: Hx Breast Cancer, Hx Cervical Cancer, Hx Leukemia, Hx Lung Cancer, Hx Ovarian Cancer GI Medical History: Denies: Hx Crohn's Disease, Hx Gastroesophageal Reflux Disease, Hx Hiatal Hernia, Hx Irritable Bowel, Hx Liver Failure, Hx Pancreatitis , Hx Ulcer Musculoskeltal Medical History: Reports Hx Arthritis - spine and knees, Denies Hx Fibromyalgia, Denies Hx Multiple Sclerosis, Denies Hx Muscular Dystrophy Psychiatric Medical History: Reports: Hx Dementia Denies: Hx Bipolar Disorder, Hx Depression, Hx Post Traumatic Stress Disorder , Hx Schizophrenia Traumatic Medical History: Reports: Hx Fractures - TAIL BONE Infectious Medical History: Denies: Hx HIV Past Surgical History: Reports: Hx Appendectomy, Hx Orthopedic Surgery - R knee. Denies: Hx Bowel Surgery, Hx Section, Hx Cholecystectomy, Hx Colostomy, Hx Coronary Artery Bypass Graft, Hx Gastric Bypass Surgery, Hx Herniorrhaphy, Hx Hysterectomy, Hx Mastectomy, Hx Pacemaker, Hx Tonsillectomy, Hx Tubal Ligation - Immunizations Hx Diphtheria, Pertussis, Tetanus Vaccination: Yes - 2006 Hx Pneumococcal Vaccination: 04/04/16 Review of Systems - Review of Systems -: Yes All other systems reviewed and negative Physical Exam - Vital signs Vitals: Temp Resp BP Pulse Ox 98.9 F 21 H 126/72 H 94 11/17/17 20:33 11/17/17 20:33 11/17/17 20:33 11/17/17 20:33 - Notes Notes: PHYSICAL EXAMINATION: GENERAL: Well-appearing, well-nourished and in no acute distress. HEAD: Atraumatic, normocephalic. EYES: Pupils equal round and reactive to light, extraocular movements intact, sclera anicteric, conjunctiva are normal. ENT: Nares patent and without discharge. oropharynx clear without exudates. No tonsilar hypertrophy or erythema. Moist mucous membranes. NECK: Normal range of motion, supple without lymphadenopathy LUNGS: Breath sounds clear to auscultation bilaterally and equal. No wheezes rales or rhonchi. HEART: Regular rate and rhythm without murmurs, rubs, gallops. ABDOMEN: Soft, nondistended abdomen. No guarding, no rebound. No masses appreciated. Normal bowel sounds present. No CVA tenderness bilaterally. + mild tenderness generalized. She has multiple closed incisions from the surgery w/o any evidence of infection, discharge, or wound dehiscence. : Perez/leg bag has noted ventura hematuria. Musculoskeletal: FROM to passive/active. Strength 5+/5. Extremities: No cyanosis, clubbing, or edema b/l. Peripheral pulses 2+. Capillary refill less than 3 seconds. NEUROLOGICAL: Cranial nerves grossly intact. Normal speech, normal gait. Normal sensory, motor exams PSYCH: Normal mood, normal affect. SKIN: Warm, Dry, normal turgor, no rashes or lesions noted. Course - Re-evaluation Re-evalutation: 11/17/17 21:[address] Gray. Transfer to [facility]. Spoke with the transfer center and am awaiting a call back. Family in agreement. Basic labs ordered. 11/17/17 21:50 Spoke with the PA-C for Dr. Duff. Recommends bladder scan to evaluate for any clots, then bladder irrigation <= 60cc per flush. If everything is flowing well and 'cleans up' then we can have her sent home tonight with f/u in the morning at their office. If it appears as though there are clots and poor flow or H/H concerns, then we will transfer ED to ED. Reviewed with family/nurse who are in agreement. 11/18/17 00:14 Patient is an afebrile, well-hydrated, 82-year-old female who presents to the ED with hematuria and acute UTI. Vitals are acceptable. PE is otherwise unremarkable. Patient is hemodynamically stable at this time. She has no significant tachycardia, tachypnea, or hypoxia. She is tolerating p.o. without any difficulties. Patient's abdomen is soft w/o rigidity. See lab results. bladder irrigation performed successfully. The 2nd round of irrigation did give our nurse a difficult time withdrawing as there may have been a small clot at the end of the catheter. Pt's urine is just slightly pink tinged at this time with no recurrence of dark red blood. Her urine is flowing through the catheter appropriately as well. H/H is stable. Reviewed with Dr. Gray who is in agreement with dispo/plan. I will give her Keflex due to concern or possible resistance as she has been on Cipro 250mg twice daily since prior to the surgery. UC is pending. Recheck tomorrow morning with Dr. Duff as reviewed. Low suspicion for any sepsis, meningitis, acute abdomen, shock. Return to the ED with any worsening/concerning symptoms otherwise as reviewed discharge. Patient and family are in agreement. 11/18/17 00:22 Spoke with the transfer center again to notify of plan. They will let her Urologist know and that she will be showing up first thing in the morning. - Vital Signs Vital signs: Temp Pulse Resp BP Pulse Ox 98.9 F 21 H 133/64 H 95 11/17/17 20:33 11/17/17 21:03 11/17/17 21:03 11/17/17 21:03 - Laboratory Result Diagrams: 11/17/17 21:28 11/17/17 21:28 Laboratory results interpreted by me: 11/17/17 11/17/17 11/17/17 21:28 21:28 22:33 WBC 15.9 H RBC 3.41 L Hgb 10.8 L Hct 30.9 L Absolute Neutrophils 10.1 H Absolute Monocytes 1.9 H Sodium 146.0 H Potassium 3.2 L Chloride 110 H BUN 21 H Est GFR (Non-Af Amer) 58 L Glucose 124 H AST 37 H Total Protein 6.1 L Albumin 3.2 L Urine Protein 100 H Urine Glucose (UA) 50 H Urine Blood LARGE H Urine Urobilinogen 4.0 H Ur Leukocyte Esterase MODERATE H Discharge - Discharge Clinical Impression: Acute UTI (urinary tract infection) Hematuria Qualifiers: Hematuria type: gross Qualified Code(s): R31.0 - Gross hematuria Condition: Stable Disposition: HOME, SELF-CARE Instructions: Cephalexin ([facility]), Urinary Tract Infection ([facility]) Additional Instructions: Push fluids (i.e. water, cranberry juice) Proper hygenic technique Keep the skin clean Tylenol/ibuprofen as needed Take medications as directed Recheck with your Urologist tomorrow morning* F/u with your PCM in 3-5 days for a recheck Return to the ED with any worsening symptoms and/or development of fever, headache, chest pain, palpitations, syncope, shortness of breath, trouble breathing, abdominal pain, n/v/d, worsening blood in stool/urine, loss of control of bowel/bladder, urinary retention, or other worsening symptoms that are concerning to you. Prescriptions: Cephalexin Monohydrate [Keflex 500 mg Capsule] 500 mg PO BID #14 capsule Referrals: CARDENAS,PAXTON, PIANO STRINGER-C [Primary Care Provider] - Follow up in 3-5 days MILLICENT DUFF DO [NO LOCAL MD] - 11/18/17
[2017-11-17 21:59] LABS: ABSOLUTE BASOPHILS # (AUTO) 0.1 10^3/uL (0.0-0.2); ABSOLUTE EOSINOPHILS # (AUTO) 0.5 10^3/uL (0.0-0.6); ABSOLUTE LYMPHOCYTES (AUTO) 3.3 10^3/uL (0.5-4.7); ABSOLUTE MONOCYTES (AUTO) 1.9 10^3/uL (0.1-1.4); ABSOLUTE NEUT (AUTO) 10.1 10^3/uL (1.7-8.2); BASOPHILS % (AUTO) 0.5 % (0-2); HEMATOCRIT 30.9 % (36.0-47.0); HEMOGLOBIN 10.8 g/dL (12.0-15.5); LYMPHOCYTES % (AUTO) 20.7 % (13-45); MEAN CORPUSCULAR HEMOGLOBIN 31.8 pg (27.0-33.4); MEAN CORPUSCULAR VOLUME 91 fl (80-97); MONOCYTES % (AUTO) 12.1 % (3-13); PLATELET COUNT 309 10^3/uL (150-450); RED BLOOD COUNT 3.41 10^6/uL (3.72-5.28); RED CELL DISTRIBUTION WIDTH 13.4 % (11.5-14.0); SEGMENTED NEUTROPHILS % (AUTO) 63.7 % (42-78); TOTAL CELLS COUNTED % (AUTO) 100 %; WHITE BLOOD COUNT 15.9 10^3/uL (4.0-10.5)
[2017-11-17 22:04] LABS: PROTHROMBIN TIME 14.8 SEC (11.4-15.4)
[2017-11-17 22:10] LABS: ALANINE AMINOTRANSFERASE 38 U/L (9-52); ALBUMIN 3.2 g/dL (3.5-5.0); ALKALINE PHOSPHATASE 64 U/L (38-126); ANION GAP 9 (5-19); ASPARTATE AMINO TRANSFERASE 37 U/L (14-36); BILIRUBIN,DIRECT 0.4 mg/dL (0.0-0.4); BLOOD UREA NITROGEN 21 mg/dL (7-20); CALCIUM 9.2 mg/dL (8.4-10.2); CARBON DIOXIDE 27 mmol/L (22-30); CHLORIDE 110 mmol/L (98-107); GLUCOSE 124 mg/dL (75-110); POTASSIUM 3.2 mmol/L (3.6-5.0); TOTAL PROTEIN 6.1 g/dL (6.3-8.2)
[2017-11-17 23:06] LABS: APPEARANCE,URINE CLOUDY; BILIRUBIN,URINE NEGATIVE (NEGATIVE); COLOR,URINE RED; GLUCOSE, URINE 50 mg/dL (NEGATIVE); KETONES,URINE NEGATIVE (NEGATIVE); LEUKOCYTE ESTERASE,URINE MODERATE (NEGATIVE); NITRITE,URINE NEGATIVE (NEGATIVE); PROTEIN,URINE 100 mg/dL (NEGATIVE); URINE SPECIFIC GRAVITY 1.014
[2017-11-18] MEDS ORDERED: CEPHALEXIN 500 MG CAPSULE PO ONE (00:24)
[2017-11-18 01:06] VITALS: BP 125/55
== END 2017-11-18 01:18 | disposition home or self-care (01) ==
LOC: ER 20:11
DX: N39.0 Urinary tract infection, site not specified (principal); R31.0 Gross hematuria; R11.0 Nausea; I10 Essential (primary) hypertension; E11.9 Type 2 diabetes mellitus without complications; Z79.4 Long term (current) use of insulin; Z90.5 Acquired absence of kidney; Z90.6 Acquired absence of other parts of urinary tract; Z98.890 Other specified postprocedural states; Z88.1 Allergy status to other antibiotic agents; Z88.2 Allergy status to sulfonamides; Z88.8 Allergy status to other drugs, medicaments and biological substances
CPT/HCPCS: 99284; 96361; 96374; 36415; 87086; 85025; 85610; 80053; 81001; J2405; J7030

== ENCOUNTER → 2018-03-02 | Outpatient (CLI) | payer MEDICARE, OTHER ==
[2018-03-02 12:23] LABS: ANION GAP 12 (5-19); BLOOD UREA NITROGEN 25 mg/dL (7-20); CALCIUM 9.5 mg/dL (8.4-10.2); CARBON DIOXIDE 26 mmol/L (22-30); CHLORIDE 107 mmol/L (98-107); GLUCOSE 66 mg/dL (75-110); POTASSIUM 4.5 mmol/L (3.6-5.0); SODIUM 145.1 mmol/L (137-145)
== END ==
LOC: OD 11:07
PROVIDERS: ATTEND Internal Medicine Nephrology
DX: E11.9 Type 2 diabetes mellitus without complications (principal)
CPT/HCPCS: 36415; 80048; 83036

== ENCOUNTER → 2018-04-27 | Outpatient (CLI) | payer MEDICARE, OTHER ==
[2018-04-27 10:43] LABS: HEMATOCRIT 38.3 % (36.0-47.0); MEAN CORPUSCULAR HEMOGLOBIN 32.2 pg (27.0-33.4); MEAN CORPUSCULAR HGB CONC 36.6 g/dL (32.0-36.0); MEAN CORPUSCULAR VOLUME 88 fl (80-97); PLATELET COUNT 391 10^3/uL (150-450); RED BLOOD COUNT 4.36 10^6/uL (3.72-5.28); RED CELL DISTRIBUTION WIDTH 14.4 % (11.5-14.0); WHITE BLOOD COUNT 12.5 10^3/uL (4.0-10.5)
[2018-04-27 11:31] LABS: ALANINE AMINOTRANSFERASE 14 U/L (9-52); ALBUMIN 4.2 g/dL (3.5-5.0); ALKALINE PHOSPHATASE 86 U/L (38-126); ANION GAP 9 (5-19); ASPARTATE AMINO TRANSFERASE 28 U/L (14-36); BILIRUBIN,DIRECT 0.3 mg/dL (0.0-0.4); BLOOD UREA NITROGEN 24 mg/dL (7-20); CALCIUM 9.7 mg/dL (8.4-10.2); CARBON DIOXIDE 30 mmol/L (22-30); CHLORIDE 104 mmol/L (98-107); GLUCOSE 78 mg/dL (75-110); POTASSIUM 4.3 mmol/L (3.6-5.0); SODIUM 142.8 mmol/L (137-145)
== END ==
LOC: OD 09:54
PROVIDERS: ATTEND Nurse Practitioner Family
DX: E11.9 Type 2 diabetes mellitus without complications (principal)
CPT/HCPCS: 36415; 80053; 83036; 85027

== ENCOUNTER 2018-05-15 12:33 | Emergency (ER) | payer MEDICARE, OTHER ==
--- NOTE | 2018-05-15 13:25 | ER Document Report ---
ED Medical Screen (RME) - General Chief Complaint: Fall Injury Stated Complaint: FALL/SIDE PAIN Time Seen by Provider: 05/15/18 13:22 Mode of Arrival: Wheelchair Information source: Patient, Relative TRAVEL OUTSIDE OF THE [place] IN LAST 30 DAYS: No - HPI Patient complains to provider of: fall Onset: Other - family states pt. fell 3 days ago on R side and pain in R hip/ pelvis is getting worse - Related Data Allergies/Adverse Reactions: erythromycin base [Erythromycin Base] Allergy (Severe, Verified 05/15/18 12:45) indomethacin [From Indocin] Allergy (Severe, Verified 05/15/18 12:45) Sulfa (Sulfonamide Antibiotics) Allergy (Verified 05/15/18 12:45) Hives Past Medical History - Past Medical History Cardiac Medical History: Reports: Hx Hypercholesterolemia, Hx Hypertension Denies: Hx Atrial Fibrillation, Hx Congestive Heart Failure, Hx Coronary Artery Disease, Hx Heart Attack, Hx Peripheral Vascular Disease, Hx Pulmonary Embolism, Hx Heart Murmur Pulmonary Medical History: Reports: Hx Bronchitis Denies: Hx Asthma, Hx COPD, Hx Pneumonia, Hx Respiratory Failure, Hx Sleep Apnea, Hx Tuberculosis Neurological Medical History: Denies: Hx Cerebrovascular Accident - X1, Hx Seizures Endocrine Medical History: Reports: Hx Diabetes Mellitus Type 2, Hx Hypothyroidism. Denies: Hx Graves' Disease, Hx Hyperthyroidism Renal/ Medical History: Denies: Hx End Stage Renal Disease, Hx Kidney Stones, Hx Ovarian Cysts, Hx Peritoneal Dialysis, Hx Pelvic Inflammatory Disease Malignancy Medical History: Denies: Hx Breast Cancer, Hx Cervical Cancer, Hx Leukemia, Hx Lung Cancer, Hx Ovarian Cancer GI Medical History: Denies: Hx Crohn's Disease, Hx Gastroesophageal Reflux Disease, Hx Hiatal Hernia, Hx Irritable Bowel, Hx Liver Failure, Hx Pancreatitis , Hx Ulcer Musculoskeltal Medical History: Reports Hx Arthritis - spine and knees, Denies Hx Fibromyalgia, Denies Hx Multiple Sclerosis, Denies Hx Muscular Dystrophy Psychiatric Medical History: Reports: Hx Dementia Denies: Hx Bipolar Disorder, Hx Depression, Hx Post Traumatic Stress Disorder , Hx Schizophrenia Traumatic Medical History: Reports: Hx Fractures - TAIL BONE Infectious Medical History: Denies: Hx HIV Past Surgical History: Reports: Hx Appendectomy, Hx Genitourinary Surgery - tumor removed from bladder(11/11/17), Hx Kidney (Renal Surgery) - right kidney(04/21), Hx Orthopedic Surgery - R knee, Other - Right-sided nephrectomy, partial urinary bladder resection. Denies: Hx Bowel Surgery, Hx Section, Hx Cholecystectomy, Hx Colostomy, Hx Coronary Artery Bypass Graft, Hx Gastric Bypass Surgery, Hx Herniorrhaphy, Hx Hysterectomy, Hx Mastectomy, Hx Pacemaker, Hx Tonsillectomy, Hx Tubal Ligation - Immunizations Hx Diphtheria, Pertussis, Tetanus Vaccination: Yes - 2007 History of Influenza Vaccine for 04/2017 - 09/2017 Season: Unknown Physical Exam - Vital signs Vitals: Temp Pulse Resp BP Pulse Ox 97.6 F 96 18 117/72 100 05/15/18 12:47 05/15/18 12:47 05/15/18 12:47 05/15/18 12:47 05/15/18 12:47 Course - Vital Signs Vital signs: Temp Pulse Resp BP Pulse Ox 97.6 F 96 18 117/72 100 05/15/18 12:47 05/15/18 12:47 05/15/18 12:47 05/15/18 12:47 05/15/18 12:47 Doctor's Discharge - Discharge Referrals: PAXTON CARDENAS FNP-C [Primary Care Provider] - Follow up as needed
--- NOTE | 2018-05-15 14:12 | RADIOLOGY REPORT (SQ) ---
EXAM DESCRIPTION: HIP RIGHT AP/LATERAL COMPLETED DATE/TIME: 05/15/2018 1:53 pm REASON FOR STUDY: Right hip pain after recent fall COMPARISON: 02/19/2017 and earlier NUMBER OF VIEWS: Two views. TECHNIQUE: AP pelvis and additional frog-leg view of the right hip. LIMITATIONS: None. FINDINGS: MINERALIZATION: Osteopenia. RIGHT HIP: No fracture or dislocation. No worrisome bone lesions. LEFT HIP: No fracture or dislocation. No worrisome bone lesions. PUBIS AND ISCHIUM: Chronic deformities of the superior and inferior left pubic rami, sequelae of prio r injury. No acute fracture. Pubic symphysis is approximated. PELVIS: No fracture. SACRUM: No fracture or dislocation. No worrisome bone lesions. LOWER LUMBAR SPINE: Degenerative disc disease of visualized lower lumbar spine. No acute fracture. SOFT TISSUES: No findings. OTHER: No other significant finding. IMPRESSION: NEGATIVE STUDY OF THE RIGHT HIP. NO RADIOGRAPHIC EVIDENCE OF ACUTE INJURY. TECHNICAL DOCUMENTATION: JOB ID: [id number] [employer] All Rights Reserved Reading location - IP/workstation name: [email or web address]
[2018-05-15 14:35] VITALS: BP 115/74
== END 2018-05-15 14:32 | disposition home or self-care (01) ==
LOC: ER 12:33
DX: M25.551 Pain in right hip (principal); R10.2 Pelvic and perineal pain; W19.XXXA Unspecified fall, initial encounter; I10 Essential (primary) hypertension; E11.9 Type 2 diabetes mellitus without complications; Z88.1 Allergy status to other antibiotic agents; Z88.0 Allergy status to penicillin; Z88.8 Allergy status to other drugs, medicaments and biological substances
CPT/HCPCS: 99284

== ENCOUNTER 2018-07-24 12:10 | Emergency (ER) | payer MEDICARE, OTHER ==
--- NOTE | 2018-07-24 13:25 | RADIOLOGY REPORT (SQ) ---
EXAM DESCRIPTION: SHOULDER LEFT 2 OR MORE VIEWS COMPLETED DATE/TIME: 07/24/2018 1:03 pm REASON FOR STUDY: Fall and left shoulder pain COMPARISON: None. NUMBER OF VIEWS: Two views. TECHNIQUE: Frontal and lateral images acquired of the left shoulder. LIMITATIONS: None. FINDINGS: MINERALIZATION: Normal. BONES: Comminuted possibly intra-articular fracture of the proximal humerus with approximately 30 an terior angulation at the surgical neck. No glenohumeral dislocation. JOINTS: No dislocation. VISUALIZED LUNGS AND RIBS: No pneumothorax. No rib fracture. SOFT TISSUES: No radiopaque foreign body. OTHER: No other significant finding. IMPRESSION: Comminuted possibly intra-articular fracture of the proximal humerus with approximately 30 anterior angulation at the surgical neck. No glenohumeral dislocation. TECHNICAL DOCUMENTATION: JOB ID: [id number] [employer]- All Rights Reserved Reading location - IP/workstation name: [email or web address]
--- NOTE | 2018-07-24 14:21 | ER Document Report ---
ED General - General Chief Complaint: Fall Stated Complaint: FALL,ARM PAIN Time Seen by Provider: 07/24/18 13:59 Notes: Patient is an 83-year-old female who presents to the emergency department after a fall. She was standing on her walker and fell forward and hurt her shoulder. She is able to wiggle her fingers, but unable to move her arm. She states that the pain is pretty bad she is started on a fentanyl patch, which she needs to be changed tomorrow she is also on morphine 10-20 mg as needed for pain. She is on home hospice and is on comfort care there she is only being managed symptomatically with morphine, Ativan, MD Tylenol, and atropine drops. 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 Her family does not wish to have her admitted to the hospital. TRAVEL OUTSIDE OF THE [place] IN LAST 30 DAYS: No - Related Data Allergies/Adverse Reactions: erythromycin base [Erythromycin Base] Allergy (Severe, Verified 05/15/18 12:45) indomethacin [From Indocin] Allergy (Severe, Verified 05/15/18 12:45) Sulfa (Sulfonamide Antibiotics) Allergy (Verified 05/15/18 12:45) Hives Past Medical History - Social History Smoking Status: Unknown if Ever Smoked Family History: Hypertension Patient has suicidal ideation: No Patient has homicidal ideation: No - Past Medical History Cardiac Medical History: Reports: Hx Hypercholesterolemia, Hx Hypertension Denies: Hx Atrial Fibrillation, Hx Congestive Heart Failure, Hx Coronary Artery Disease, Hx Heart Attack, Hx Peripheral Vascular Disease, Hx Pulmonary Embolism, Hx Heart Murmur Pulmonary Medical History: Reports: Hx Bronchitis Denies: Hx Asthma, Hx COPD, Hx Pneumonia, Hx Respiratory Failure, Hx Sleep Apnea, Hx Tuberculosis Neurological Medical History: Denies: Hx Cerebrovascular Accident - X1, Hx Seizures Endocrine Medical History: Reports: Hx Diabetes Mellitus Type 2, Hx Hypothyroidism. Denies: Hx Graves' Disease, Hx Hyperthyroidism Renal/ Medical History: Denies: Hx End Stage Renal Disease, Hx Kidney Stones, Hx Ovarian Cysts, Hx Peritoneal Dialysis, Hx Pelvic Inflammatory Disease Malignancy Medical History: Denies: Hx Breast Cancer, Hx Cervical Cancer, Hx Leukemia, Hx Lung Cancer, Hx Ovarian Cancer GI Medical History: Denies: Hx Crohn's Disease, Hx Gastroesophageal Reflux Disease, Hx Hiatal Hernia, Hx Irritable Bowel, Hx Liver Failure, Hx Pancreatitis, Hx Ulcer Musculoskeletal Medical History: Reports Hx Arthritis - spine and knees, Denies Hx Fibromyalgia, Denies Hx Multiple Sclerosis, Denies Hx Muscular Dystrophy Psychiatric Medical History: Reports: Hx Dementia Denies: Hx Bipolar Disorder, Hx Depression, Hx Post Traumatic Stress Disorder, Hx Schizophrenia Traumatic Medical History: Reports: Hx Fractures - TAIL BONE Infectious Medical History: Denies: Hx HIV Past Surgical History: Reports: Hx Appendectomy, Hx Genitourinary Surgery - tumor removed from bladder(11/11/17), Hx Kidney (Renal Surgery) - right kidney(11/11/17), Hx Orthopedic Surgery - R knee, Other - Right-sided nephrectomy, partial urinary bladder resection. Denies: Hx Bowel Surgery, Hx Section, Hx Cholecystectomy, Hx Colostomy, Hx Coronary Artery Bypass Graft, Hx Gastric Bypass Surgery, Hx Herniorrhaphy, Hx Hysterectomy, Hx Mastectomy, Hx Pacemaker, Hx Tonsillectomy, Hx Tubal Ligation - Immunizations Hx Diphtheria, Pertussis, Tetanus Vaccination: Yes - 2006 Hx Pneumococcal Vaccination: 04/04/16 Review of Systems - Review of Systems Notes: REVIEW OF SYSTEMS: CONSTITUTIONAL : Denies recent illness. Denies recent unintentional weight loss. Denies fever, chills, or sweats. EENT: Denies eye, ear, throat, or mouth pain, discharge, or symptoms. Denies nasal or sinus congestion. CARDIOVASCULAR: Denies chest pain. RESPIRATORY: Denies shortness of breath, cough, congestion, difficulty breathing, or wheezing. GASTROINTESTINAL: Denies nausea, vomiting, and diarrhea. Denies abdominal pain. Denies constipation. GENITOURINARY: Denies difficulty urinating, burning, blood in urine, urgency or frequency. MUSCULOSKELETAL: See HPI SKIN: Denies rash, itchiness, or lesions HEMATOLOGIC : Denies easy bruising or bleeding. LYMPHATIC: Denies swollen, painful, enlarged glands. NEUROLOGICAL: Denies no numbness or tingling denies weakness. Denies headache. Denies altered mental status. Denies alteration in speech. PSYCHIATRIC: Denies stress, anxiety, alteration in sleep patterns, or depression. All other systems reviewed and negative. Physical Exam - Vital signs Vitals: Temp Pulse Resp BP Pulse Ox 97.9 F 97 20 100/58 L 83 L 07/24/18 12:16 07/24/18 12:16 07/24/18 12:16 07/24/18 12:16 07/24/18 12:16 - Notes Notes: PHYSICAL EXAMINATION: GENERAL: Chronically ill, no acute distress. HEAD: Normocephalic, atraumatic. EYES: PERRL, conjunctiva normal, all extraocular movements intact, sclera nonicteric ENT: Moist mucous membranes. NECK: Supple, no noticeable swelling, redness, rash. Normal range of motion. LUNGS: Coarse breath sounds throughout. CARDIOVASCULAR: S1-S2, regular rate, regular rhythm. Radial pulses 2+, normal. ABDOMEN: Normoactive bowel sounds. Soft, nontender, no guarding, no rebound tenderness, and no masses palpated. EXTREMITIES: Unable to grossly move left upper arm. Able to squeeze and we will fingers on the left. Slight weakness in lower extremities and right upper extremity. NEUROLOGICAL: Moves all extremities upon command. Strength 5/5 in all extremities. PSYCH: Normal mood, normal affect. SKIN: Warm, dry. No rash, lesions, ulcerations noted. Normal skin turgor. Course - Re-evaluation Re-evalutation: 07/24/18 14:15 The patient has a comminuted fracture to the proximal portion of the left humerus. She is on hospice care and the family is stating that they would like her to be home since she has aggressive stage IV cancer. 07/24/18 15:[address] Colvin, the orthopedic doctor independent beauty consultant. He is in agreement's with the patient being sent home with hospice care. I have spoke with the family in regards to this issue. We will set up transport to the patient can go home and continue hospice care. Receive another dose of morphine before leaving the emergency department. Verbal discharge instructions were given to the patient. They verbalized understanding. They are stable for discharge. - Vital Signs Vital signs: Temp Pulse Resp BP Pulse Ox 98.3 F 98 18 104/64 94 07/24/18 16:14 07/24/18 16:14 07/24/18 16:14 07/24/18 16:14 07/24/18 16:14 Discharge - Discharge Clinical Impression: Hospice care Left humeral fracture Qualifiers: Encounter type: initial encounter Humerus Location: surgical neck Fracture type: closed Fracture morphology: unspecified fracture morphology Fracture alignment: displaced Qualified Code(s): S42.212A - Unspecified displaced fracture of surgical neck of left humerus, initial encounter for closed fracture Condition: Stable Disposition: HOME, SELF-CARE Additional Instructions: You are seen here in the emergency department for a fall. You have a fracture of your left arm. Unfortunately, it cannot be repaired. Please continue hospice care at home. Please consult with the hospice nurse about increasing the morphine, lorazepam, and fentanyl dosages. Referrals: PAXTON CARDENAS FNP-C [Primary Care Provider] - Follow up as needed
[2018-07-24] MEDS ORDERED: MORPHINE SULFATE 10 MG/ML INJ IV ONE ×2 (14:30→15:01)
[2018-07-24 16:15] VITALS: BP 104/64
== END 2018-07-24 16:52 | disposition home or self-care (01) ==
LOC: ER 12:10
DX: S42.212A Unspecified displaced fracture of surgical neck of left humerus, initial encounter for closed fracture (principal); W18.39XA Other fall on same level, initial encounter; R09.89 Other specified symptoms and signs involving the circulatory and respiratory systems; C80.1 Malignant (primary) neoplasm, unspecified; R53.1 Weakness; I10 Essential (primary) hypertension; E11.9 Type 2 diabetes mellitus without complications; Z88.1 Allergy status to other antibiotic agents; Z88.2 Allergy status to sulfonamides; Z88.8 Allergy status to other drugs, medicaments and biological substances
CPT/HCPCS: 96376; 99283; 96374; 73030; J2270